=== PATIENT | female | born 1960 | race Caucasian/White ===

== ENCOUNTER 2019-07-10 21:22 | Emergency (ER) | payer MEDICARE ==
--- NOTE | 2019-07-10 22:15 | ERPHSYRPT ---
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 and saw her last week with same symptoms but son noted swelling /bulging there today ; no hernia on palpation but appears to be some degree of scoliosis contributing to the increased rib prominence on the left side ; no hx trauma , no hx infections or hx of spleenomegally; normal diet no N/V Timing/Duration: day(s), week(s) Activities at Onset: none Quality: sharpness, stabbing Abdominal Pain Onset Location: flank Pain Radiation: LUQ Severity of Pain-Max: moderate Severity of Pain-Current: moderate Modifying Factors: Improves With: movement, palpation Associated Symptoms: No nausea, No vomiting Previous symptoms: same symptoms as today, recently seen, recently treated Allergies/Adverse Reactions: erythromycin base Allergy (Verified 07/10/19 21:50) Rash Home Medications: Clopidogrel Bisulfate 75 mg [PLAVIX 75 MG Tablet] 75 mg PO DAILY 11/23/14 [History] Rosuvastatin Calcium [Crestor] 10 mg PO DAILY 11/23/14 [History] Hydrocodone/APAP 10/325 mg [[place] 10/325 MG Tablet] 1 tab PO TID 06/20/16 [History] Cyclobenzaprine HCl [Flexeril] 10 mg PO DAILY 07/10/19 [History] Evolocumab [Repatha Syringe] 1 tab PO DAILY 07/10/19 [History] Isosorbide Mononitrate 30 mg [Imdur 30 MG] 1 tab PO DAILY 07/10/19 [History ] Lisinopril 10 mg [Zestril 10 MG] 1 tab PO DAILY 07/10/19 [History] Propranolol HCl [Inderal LA] 1 tab PO DAILY 07/10/19 [History] - Review of Systems Constitutional: No Fever, No Chills Eyes: No Symptoms Ears, Nose, & Throat: No Symptoms Respiratory: No Cough, No Dyspnea Cardiac: No Chest Pain, No Edema, No Syncope Abdominal/Gastrointestinal: No Abdominal Pain, No Nausea, No Vomiting, No Diarrhea Genitourinary Symptoms: Flank Pain, No Dysuria Musculoskeletal: Back Pain, No Neck Pain Skin: No Rash Neurological: No Dizziness, No Focal Weakness, No Sensory Changes Psychological: No Symptoms Endocrine: No Symptoms Hematologic/Lymphatic: No Symptoms Immunological/Allergic: No Symptoms All Other Systems: Reviewed and Negative - Past Medical History Pertinent Past Medical History: Yes Neurological History: No Pertinent History ENT History: No Pertinent History Cardiac History: Angina, High Cholesterol, Hypertension Respiratory History: No Pertinent History Endocrine Medical History: No Pertinent History Musculoskeletal History: No Pertinent History GI Medical History: No Pertinent History Psycho-Social History: No Pertinent History Female Reproductive Disorders: No Pertinent History, Fibroids - Past Surgical History Past Surgical History: Yes Neuro Surgical History: No Pertinent History Cardiac: Cardiac Catheterization, Cardiac Stent Respiratory: No Pertinent History Gastrointestinal: No Pertinent History Genitourinary: No Pertinent History Musculoskeletal: Orthopedic Surgery Female Surgical History: Hysterectomy Other Surgical History: states "rods in back,and bilateral rotator cuff surgery " - Social History Smoking Status: Current every day smoker How long have you smoked: 20yrs Exposure to second hand smoke: Yes Drug Use: none Patient Lives Alone: No - Nursing Vital Signs Nursing Vital Signs: Initial Vital Signs Temperature 98.0 F 07/10/19 22:12 Pulse Rate 81 07/10/19 22:12 Respiratory Rate 18 07/10/19 22:12 Blood Pressure 137/104 07/10/19 22:12 O2 Sat by Pulse Oximetry 97 07/10/19 22:12 Pain Scale Pain Intensity 4 - Physical Exam General Appearance: no apparent distress, alert Eye Exam: PERRL/EOMI, eyes nml inspection Ears, Nose, Throat Exam: normal ENT inspection, pharynx normal, moist mucous membranes Neck Exam: normal inspection, non-tender, supple, full range of motion Respiratory Exam: normal breath sounds, lungs clear, No respiratory distress Cardiovascular Exam: regular rate/rhythm, normal heart sounds Gastrointestinal/Abdomen Exam: soft, tenderness (left ribs/flank), No mass, No guarding, No ecchymosis, No pulsatile mass, No rebound, No hernia, No organomegaly, No splenomegaly Pelvic Exam: deferred Rectal Exam: deferred Back Exam: normal inspection, normal range of motion, No CVA tenderness, No vertebral tenderness Extremity Exam: normal inspection, normal range of motion, pelvis stable Neurologic Exam: alert, oriented x 3, cooperative, normal mood/affect, nml cerebellar function, sensation nml, No motor deficits Skin Exam: normal color, warm, dry - Course Nursing assessment & vital signs reviewed: Yes EKG Interpreted by Me: Sinus Rhythm, Left [place] Deviation, Left Bundle Branch Block, Non-specific ST Changes - CT Exams Abdomen/Pelvis CT Interpretation: Tele-radiologist Report, No appendicitis, Other ( diverticulosis; ventral nonobs hernia , stable aneurysm) Ordered Tests: Active Orders 24 hr Category Date Time Status EKG-ER Only STAT Care 07/10/19 22:21 Active IV Insertion STAT Care 07/10/19 22:21 Active ABDOMEN AND PELVIS W CONTRAST [CT] Stat Exams 07/10/19 22:24 Taken CBC W DIFF Stat Lab 07/10/19 23:02 Completed CMP Stat Lab 07/10/19 23:02 Completed LIPASE Stat Lab 07/10/19 23:02 Completed Lactic Acid Stat Lab 07/10/19 22:55 Completed TROPONIN Q3H Lab 07/10/19 23:02 Completed TROPONIN Q3H Lab 07/11/19 01:30 Ordered TROPONIN Q3H Lab 07/11/19 04:30 Ordered TROPONIN Q3H Lab 07/11/19 07:30 Ordered TROPONIN Q3H Lab 07/11/19 10:30 Ordered UA W/RFX UR CULTURE Stat Lab 07/10/19 23:02 Completed Medication Summary Generic Name Dose Route Start Last Admin Trade Name Freq PRN Reason Stop Dose Admin Sodium Chloride 1,000 mls @ 100 mls/hr 07/10/19 22:30 07/10/19 22:59 Sodium Chloride 0.9% 1000 Ml IV 08/09/19 22:29 100 mls/hr .Q10H MYRNA Administration Discontinued Medications Generic Name Dose Route Start Last Admin Trade Name Freq PRN Reason Stop Dose Admin Lisinopril Confirm 07/10/19 22:46 Zestril 10 Mg Administered 07/10/19 22:47 Dose 10 mg .ROUTE .STK-MED ONE Lisinopril 10 mg 07/10/19 22:57 07/10/19 23:00 Zestril 10 Mg PO 07/10/19 22:58 10 mg STAT STA Administration Lab/Rad Data: Laboratory Result Diagrams 07/10/19 23:02 07/10/19 23:02 Laboratory Results 07/10/19 07/10/1920 Range/Units 23:02 23:02 23:02 WBC (4.0-10.5) K/mm3 RBC (4.1-5.4) M/mm3 Hgb (12.0-16.0) gm/dl Hct (35-47) % MCV (78-100) fl MCH (26-32) pg MCHC (32-36) g/dl RDW (11.5-14.0) % Plt Count (150-450) K/mm3 MPV (7.5-11.0) fl Gran % (36.0-66.0) % Eos # (Auto) (0-0.5) Absolute Lymphs (auto) (1.0-4.6) Absolute Monos (auto) (0.0-1.3) Lymphocytes % (24.0-44.0) % Monocytes % (0.0-12.0) % Eosinophils % (0.00-5.0) % Basophils % (0.0-0.4) % Absolute Granulocytes (1.4-6.9) Basophils # (0-0.4) Sodium 141 (137-145) mmol/L Potassium 3.7 (3.5-5.1) mmol/L Chloride 105 (98-107) mmol/L Carbon Dioxide 27 (22-30) mmol/L Anion Gap 12.5 (5-15) MEQ/L BUN 13 (7-17) mg/dL Creatinine 0.83 (0.52-1.04) mg/dL Estimated GFR > 60.0 ML/MIN Glucose 106 (74-106) mg/dL Lactic Acid (0.4-2.0) Calcium 9.8 (8.4-10.2) mg/dL Total Bilirubin 0.40 (0.2-1.3) mg/dL AST 34 (14-36) U/L ALT 24 (0-35) U/L Alkaline Phosphatase 61 (38-126) U/L Troponin I < 0.012 (0.000-0.034) ng/mL Serum Total Protein 7.7 (6.3-8.2) g/dL Albumin 4.4 (3.5-5.0) g/dL Lipase 61 (23-300) U/L Urine Color STRAW (YELLOW) Urine Appearance CLEAR (CLEAR) Urine pH 6.0 (5-6) Ur Specific [place] 1.002 (1.005-1.025) Urine Protein NEGATIVE (Negative) Urine Ketones NEGATIVE (NEGATIVE) Urine Blood SMALL (0-5) Nicko/ul Urine Nitrite NEGATIVE (NEGATIVE) Urine Bilirubin NEGATIVE (NEGATIVE) Urine Urobilinogen NEGATIVE (0-1) mg/dL Ur Leukocyte Esterase NEGATIVE (NEGATIVE) Urine WBC (Auto) NONE (0-5) /HPF Urine RBC (Auto) NONE (0-2) /HPF U Epithel Cells (Auto) NONE (FEW) /HPF Urine Bacteria (Auto) NONE (NEGATIVE) /HPF Urine Mucus (Auto) SLIGHT (NEGATIVE) /HPF Urine Culture Reflexed NO (NO) Urine Glucose NEGATIVE (NEGATIVE) mg/dL 07/10/19 07/10/19 Range/Units 23:02 22:55 WBC 7.2 (4.0-10.5) K/mm3 RBC 4.52 (4.1-5.4) M/mm3 Hgb 13.9 (12.0-16.0) gm/dl Hct 41.3 (35-47) % MCV 91.4 (78-100) fl MCH 30.8 (26-32) pg MCHC 33.7 (32-36) g/dl RDW 12.8 (11.5-14.0) % Plt Count 249 (150-450) K/mm3 MPV 9.2 (7.5-11.0) fl Gran % 59.1 (36.0-66.0) % Eos # (Auto) 0.16 (0-0.5) Absolute Lymphs (auto) 2.30 (1.0-4.6) Absolute Monos (auto) 0.47 (0.0-1.3) Lymphocytes % 31.8 (24.0-44.0) % Monocytes % 6.5 (0.0-12.0) % Eosinophils % 2.2 (0.00-5.0) % Basophils % 0.4 (0.0-0.4) % Absolute Granulocytes 4.28 (1.4-6.9) Basophils # 0.03 (0-0.4) Sodium (137-145) mmol/L Potassium (3.5-5.1) mmol/L Chloride (98-107) mmol/L Carbon Dioxide (22-30) mmol/L Anion Gap (5-15) MEQ/L BUN (7-17) mg/dL Creatinine (0.52-1.04) mg/dL Estimated GFR ML/MIN Glucose (74-106) mg/dL Lactic Acid 0.9 (0.4-2.0) Calcium (8.4-10.2) mg/dL Total Bilirubin (0.2-1.3) mg/dL AST (14-36) U/L ALT (0-35) U/L Alkaline Phosphatase (38-126) U/L Troponin I (0.000-0.034) ng/mL Serum Total Protein (6.3-8.2) g/dL Albumin (3.5-5.0) g/dL Lipase (23-300) U/L Urine Color (YELLOW) Urine Appearance (CLEAR) Urine pH (5-6) Ur Specific [place] (1.005-1.025) Urine Protein (Negative) Urine Ketones (NEGATIVE) Urine Blood (0-5) Nicko/ul Urine Nitrite (NEGATIVE) Urine Bilirubin (NEGATIVE) Urine Urobilinogen (0-1) mg/dL Ur Leukocyte Esterase (NEGATIVE) Urine WBC (Auto) (0-5) /HPF Urine RBC (Auto) (0-2) /HPF U Epithel Cells (Auto) (FEW) /HPF Urine Bacteria (Auto) (NEGATIVE) /HPF Urine Mucus (Auto) (NEGATIVE) /HPF Urine Culture Reflexed (NO) Urine Glucose (NEGATIVE) mg/dL - Progress Progress: improved, re-examined Progress Note: 07/10/19 22:17 [facility] and hx anuerysm and prior stents adn pt agress best to proceed with CT and ekg and labs 07/11/19 00:49 discussed results with pt and family and that undetected pathology including vascular/abd/cardiac could still be evolving and they prefer f/u PCP outpt as planned rather than further w/u/admission at this time and have the capacity to make this choice; Counseled pt/family regarding: lab results, diagnosis, need for follow-up, rad results - Departure Departure Disposition: Home Clinical Impression: abdominal flank pain unknown cause, Hematuria, Ventral hernia, stable aneursym AAA, Diverticulosis Condition: Good Critical Care Time: No Referrals: MIKI MITCHELL [Primary Care Provider] - Instructions: Blood in the Urine (Hematuria), Adult (DC), Diverticulosis (DC), Abdominal Hernia (DC), Abdominal Aortic Aneurysm Additional Instructions: followup with your doctors as planned- return meantime if any further concerns, you have a very mild aneurysm in the aorta which should be no immediate concern but is good to continue to observe with your vascular history; you have a ventral hernia which also is not causing immediate problems; followup the trace of blood in the urine with your
[2019-07-10] MEDS ORDERED: Sodium Chloride 0.9% 1000 ML 1,000 ML IV SCH (22:30)
[2019-07-10] MEDS ORDERED: Zestril 10 MG ONE (22:46)
[2019-07-10 22:53] VITALS: O2SAT 96
[2019-07-10] MEDS ORDERED: Zestril 10 MG PO STA (22:57)
[2019-07-10] MEDS ORDERED: Sodium Chloride 0.9% 1000 ML 1,000 ML ONE (22:58)
[2019-07-10 23:04] LABS: Absolute Neutrophil Ct (ANC) 4.28 (1.4-6.9); BASOPHIL % 0.4 % (0.0-0.4); Basophil (Absolute #) 0.03 (0-0.4); Eosinophil % 2.2 % (0.00-5.0); Eosinophil (Absolute #) 0.16 (0-0.5); Hematocrit 41.3 % (35-47); Hemoglobin 13.9 gm/dl (12.0-16.0); Lymphocytes % 31.8 % (24.0-44.0); Mean Cell Volume 91.4 fl (78-100); Mean Corpuscular Hemoglobin 30.8 pg (26-32); Mean Corpuscular Hgb Concent. 33.7 g/dl (32-36); Mean Platelet Volume 9.2 fl (7.5-11.0); Monocyte (Absolute #) 0.47 (0.0-1.3); Monocytes % 6.5 % (0.0-12.0); Neutrophil % 59.1 % (36.0-66.0); Platelet Count 249 K/mm3 (150-450); Red Blood Count 4.52 M/mm3 (4.1-5.4); Red Cell Distribution Width 12.8 % (11.5-14.0); White Blood Count 7.2 K/mm3 (4.0-10.5)
[2019-07-10 23:17] LABS: ALBUMIN 4.4 g/dL (3.5-5.0); ALKALINE PHOSPHATASE 61 U/L (38-126); ANION GAP 12.5 MEQ/L (5-15); BLOOD UREA NITROGEN 13 mg/dL (7-17); CHLORIDE 105 mmol/L (98-107); Calcium 9.8 mg/dL (8.4-10.2); Carbon Dioxide 27 mmol/L (22-30); Creatinine 1 0.83 mg/dL (0.52-1.04); Glucose 106 mg/dL (74-106); LIPASE 61 U/L (23-300); Potassium 3.7 mmol/L (3.5-5.1); SGOT/AST 34 U/L (14-36); SGPT/ALT 24 U/L (0-35); SODIUM 141 mmol/L (137-145); Total Protein 7.7 g/dL (6.3-8.2)
[2019-07-10 23:30] LABS: Appearance CLEAR (CLEAR); Bilirubin NEGATIVE (NEGATIVE); Blood SMALL Ery/ul (0-5); Glucose NEGATIVE (NEGATIVE); Ketones NEGATIVE (NEGATIVE); Leukocyte Esterase NEGATIVE (NEGATIVE); Mucus SLIGHT /HPF (NEGATIVE); Nitrite NEGATIVE (NEGATIVE); Protein,Urine Dip NEGATIVE (Negative); Specific Gravity 1.002 (1.005-1.025); Urobilinogen NEGATIVE mg/dL (0-1)
[2019-07-11 01:07] VITALS: BP 187/94; PULSE 73
--- NOTE | 2019-07-11 08:49 | XRAY ---
Indication: Left flank pain. Multiple contiguous axial images obtained through the abdomen and pelvis using 80 cc Isovue 370 contrast only. Comparison: CT pelvis December 20, 2010. Lung bases demonstrates minimal bilateral dependent atelectasis and tiny lingula calcified granuloma. No infiltrate or effusion. Heart is enlarged. Small hiatal hernia. Noncontrasted stomach and bowel loops appear nonobstructed. Mild diffuse scattered colonic fecal debris throughout. Stable scattered sigmoid diverticulosis without diverticulitis. Appendectomy and cholecystectomy reported. No free fluid/air. Both kidneys enhance and excrete with minimal bilateral cortical thinning/scarring. 1 cm right upper pole cortical cyst. Remaining liver, pancreas, spleen, adrenal glands, kidneys, ureters, and bladder appear unremarkable. Aorta demonstrates mild scattered calcifications with mild 2.5 cm distal AAA. Stable bilateral iliac stent grafts. No pathologic retroperitoneal lymphadenopathy. Osseous structures intact again with L2-L5 fusion with intact posterior spinal hardware. New minimal umbilicus ventral hernia without complications. Impression: 1. Mild fecal stasis without obstruction. Stable sigmoid diverticulosis without diverticulitis. 2. 2.5 cm distal AAA with stable bilateral iliac stent grafts. 3. Minimal bilateral renal cortical thinning/scarring, right renal cyst, small hiatal hernia, and L2-L5 posterior fusion. 4. Remaining CT abdomen/pelvis with contrast exam is negative. Comment: Preliminary interpretation was made by [facility]. No critical discrepancy.
== END 2019-07-11 01:14 | disposition home or self-care (01) ==
LOC: ED 21:22
DX: R10.12 Left upper quadrant pain (principal); R10.9 Unspecified abdominal pain; R31.9 Hematuria, unspecified; K43.9 Ventral hernia without obstruction or gangrene; I71.4 Abdominal aortic aneurysm, without rupture; K57.90 Diverticulosis of intestine, part unspecified, without perforation or abscess without bleeding; I10 Essential (primary) hypertension; E78.00 Pure hypercholesterolemia, unspecified; Z79.899 Other long term (current) drug therapy; Z79.891 Long term (current) use of opiate analgesic; M54.9 Dorsalgia, unspecified
CPT/HCPCS: 36000; 36415; 74177; 80053; 81001; 83605; 83690; 84484; 85025; 93005; 99284; A9270-GY

== ENCOUNTER 2021-03-18 16:47 | Emergency (ER) | payer MEDICARE ==
[2021-03-18 17:13] VITALS: O2SAT 99
[2021-03-18] MEDS ORDERED: Sodium Chloride 0.9% 1000 ML 1,000 ML IV STA (17:34)
[2021-03-18] MEDS ORDERED: Sodium Chloride 0.9% 1000 ML 1,000 ML ONE (17:42)
[2021-03-18 17:51] LABS: ALBUMIN 4.6 g/dL (3.5-5.0); ANION GAP 14.7 MEQ/L (5-15); BASOPHIL % 0.2 % (0.0-0.4); BILIRUBIN,TOTAL 0.7 mg/dL (0.2-1.3); Basophil (Absolute #) 0.02 (0-0.4); Calcium 9.6 mg/dL (8.4-10.2); Creatinine 1 1.44 mg/dL (0.52-1.04); EST GLOMERULAR FILTRATION RATE 39.7 ML/MIN; Eosinophil % 2.5 % (0.00-5.0); Eosinophil (Absolute #) 0.21 (0-0.5); Hemoglobin 13.5 gm/dl (12.0-16.0); Lymphocyte (Absolute #) 1.59 (1.0-4.6); Lymphocytes % 18.9 % (24.0-44.0); Mean Cell Volume 92.5 fl (78-100); Mean Corpuscular Hemoglobin 29.7 pg (26-32); Mean Corpuscular Hgb Concent. 32.1 g/dl (32-36); Mean Platelet Volume 9.3 fl (7.5-11.0); Monocyte (Absolute #) 0.61 (0.0-1.3); Monocytes % 7.2 % (0.0-12.0); Neutrophil % 71.2 % (36.0-66.0); Platelet Count 314 K/mm3 (150-450); Potassium 4.7 mmol/L (3.5-5.1); Red Blood Count 4.54 M/mm3 (4.1-5.4); Red Cell Distribution Width 13.3 % (11.5-14.0); Total Protein 7.3 g/dL (6.3-8.2); White Blood Count 8.4 K/mm3 (4.0-10.5)
[2021-03-18 17:53] LABS: Appearance CLEAR (CLEAR); Bilirubin NEGATIVE (NEGATIVE); Blood SMALL Ery/ul (0-5); Glucose NEGATIVE (NEGATIVE); Ketones NEGATIVE (NEGATIVE); Leukocyte Esterase NEGATIVE (NEGATIVE); Nitrite NEGATIVE (NEGATIVE); Protein,Urine Dip NEGATIVE (Negative); Specific Gravity 1.003 (1.005-1.025); Urobilinogen NEGATIVE mg/dL (0-1)
--- NOTE | 2021-03-18 18:52 | ERPHSYRPT ---
- History of Present Illness Time Seen by Provider: 03/18/21 17:10 Historian: patient Exam Limitations: no limitations Patient Subjective Stated Complaint: Abdominal pain Triage Nursing Assessment: Patient ambulated back to ED and transferred self to bed. Patient A+O X 3. Patient's skin pink, warm and dry. Patient complains of abdominal pain around umbilicus that started on Thursday. Patient complains of diarrhea and after eating going straight to restroom and having diarrrhea. Abdomen soft and round with BS X 4. Patient denies N/V. Physician History: Patient is a 60-year-old female presents to our ED with complaint supraumbilical pain. Pain started after starting Bactrim antibiotic for urinary tract infection. Patient started her Bactrim last week Thursday. Patient states her symptoms started Thursday. Patient states that she would eat and then experience periumbilical pain and pressure. Patient has since stopped her Bactrim. No radiation no fever. Patient voiced no other complaints concerns this time. Timing/Duration: week(s) Activities at Onset: none Quality: aching Abdominal Pain Onset Location: periumbilical Pain Radiation: no radiation Severity of Pain-Max: moderate Severity of Pain-Current: mild Modifying Factors: Improves With: other (Eating) Associated Symptoms: denies symptoms, back Allergies/Adverse Reactions: erythromycin base Allergy (Verified 03/18/21 17:05) Rash Home Medications: Clopidogrel Bisulfate 75 mg [PLAVIX 75 MG Tablet] 75 mg PO DAILY 11/23/14 [History] Rosuvastatin Calcium [Crestor] 10 mg PO DAILY 11/23/14 [History] Hydrocodone/APAP 10/325 mg [[place] 10/325 MG Tablet] 1 tab PO TID 06/20/16 [History] Cyclobenzaprine HCl [Flexeril] 10 mg PO DAILY 07/10/19 [History] Evolocumab [Repatha Syringe] 1 tab PO DAILY 07/10/19 [History] Isosorbide Mononitrate 30 mg [Imdur 30 MG] 1 tab PO DAILY 07/10/19 [History] Lisinopril 10 mg [Zestril 10 MG] 1 tab PO DAILY 07/10/19 [History] Propranolol HCl [Inderal LA] 1 tab PO DAILY 07/10/19 [History] Hx Influenza Vaccination/Date Given: No Hx Pneumococcal Vaccination/Date Given: No Immunizations Up to Date: Yes Travel Risk - International Travel Have you traveled outside of the country in past 3 weeks: No - Coronavirus Screening Are you exhibiting any of the following symptoms?: No Close contact with a COVID-19 positive Pt in past 14-21 Days: No - Vaccine Status Have you recieved a Covid-19 vaccination: Yes [employer]: [employer] - Vaccination Dates Date of 2cond Vaccination (if applicable): November 2020 - Past Medical History Pertinent Past Medical History: Yes Neurological History: No Pertinent History ENT History: No Pertinent History Cardiac History: Angina, High Cholesterol, Hypertension Respiratory History: No Pertinent History Endocrine Medical History: No Pertinent History Musculoskeletal History: No Pertinent History GI Medical History: No Pertinent History Psycho-Social History: No Pertinent History Female Reproductive Disorders: No Pertinent History, Fibroids - Past Surgical History Past Surgical History: Yes Neuro Surgical History: No Pertinent History Cardiac: Cardiac Catheterization, Cardiac Stent Respiratory: No Pertinent History Gastrointestinal: No Pertinent History Genitourinary: No Pertinent History Musculoskeletal: Orthopedic Surgery Female Surgical History: Hysterectomy Other Surgical History: states "rods in back,and bilateral rotator cuff surgery" - Social History Smoking Status: Current every day smoker How long have you smoked: 20yrs Exposure to second hand smoke: Yes Drug Use: none Patient Lives Alone: Yes - Female History Hx Now: No - Nursing Vital Signs Nursing Vital Signs: Initial Vital Signs Temperature 97.7 F 03/18/21 17:05 Pulse Rate 73 03/18/21 17:05 Respiratory Rate 18 03/18/21 17:05 Blood Pressure 159/90 03/18/21 17:05 O2 Sat by Pulse Oximetry 99 03/18/21 17:05 Pain Scale Pain Intensity 4 - Physical Exam SpO2: 99 - Course Nursing assessment & vital signs reviewed: Yes - CT Exams Abdomen/Pelvis CT Interpretation: Tele-radiologist Report (Compared to 07/11/2019 stable small hiatal hernia. Demeanor AAA with iliac stents, sigmoid diverticulosis, small umbilical ventral hernia, L2-L5 fusion hardware beam artifact. No new acute findings) Ordered Tests: Active Orders 24 hr Category Date Time Status IV Insertion STAT Care 03/18/21 17:34 Active ABDOMEN AND PELVIS W/0 CONTRAS [CT] Stat Exams 03/18/21 17:34 Taken CBC W DIFF Stat Lab 03/18/21 17:28 Completed CMP Stat Lab 03/18/21 17:28 Completed HCG,QUALITATIVE URINE Stat Lab 03/18/21 18:49 Completed LIPASE Stat Lab 03/18/21 17:28 Completed TROPONIN Q3H Lab 03/18/21 17:28 Completed TROPONIN Q3H Lab 03/18/21 20:45 Ordered TROPONIN Q3H Lab 03/18/21 23:45 Ordered TROPONIN Q3H Lab 03/19/21 02:45 Ordered TROPONIN Q3H Lab 03/19/21 05:45 Ordered UA W/RFX UR CULTURE Stat Lab 03/18/21 17:39 Completed Medication Summary Discontinued Medications Generic Name Dose Route Start Last Admin Trade Name Freq PRN Reason Stop Dose Admin Sodium Chloride 1,000 mls @ 999 mls/hr 03/18/21 17:34 03/18/21 18:53 Sodium Chloride 0.9% 1000 Ml IV 03/18/21 18:34 Infused .Q1H1M STA Infusion Sodium Chloride Confirm 03/18/21 17:42 Sodium Chloride 0.9% 1000 Ml Administered 03/18/21 17:43 Dose 1,000 mls @ ud .ROUTE .STK-MED ONE Lab/Rad Data: Laboratory Result Diagrams 03/18/21 17:28 03/18/21 17:28 Laboratory Results 03/18/21 03/18/21 03/18/21 Range/Units 18:49 17:39 17:28 WBC (4.0-10.5) K/mm3 RBC (4.1-5.4) M/mm3 Hgb (12.0-16.0) gm/dl Hct (35-47) % MCV (78-100) fl MCH (26-32) pg MCHC (32-36) g/dl RDW (11.5-14.0) % Plt Count (150-450) K/mm3 MPV (7.5-11.0) fl Gran % (36.0-66.0) % Eos # (Auto) (0-0.5) Absolute Lymphs (auto) (1.0-4.6) Absolute Monos (auto) (0.0-1.3) Lymphocytes % (24.0-44.0) % Monocytes % (0.0-12.0) % Eosinophils % (0.00-5.0) % Basophils % (0.0-0.4) % Absolute Granulocytes (1.4-6.9) Basophils # (0-0.4) Sodium (137-145) mmol/L Potassium (3.5-5.1) mmol/L Chloride (98-107) mmol/L Carbon Dioxide (22-30) mmol/L Anion Gap (5-15) MEQ/L BUN (7-17) mg/dL Creatinine (0.52-1.04) mg/dL Estimated GFR ML/MIN Glucose (74-106) mg/dL Calcium (8.4-10.2) mg/dL Total Bilirubin (0.2-1.3) mg/dL AST (14-36) U/L ALT (0-35) U/L Alkaline Phosphatase (38-126) U/L Troponin I < 0.012 (0.000-0.034) ng/mL Serum Total Protein (6.3-8.2) g/dL Albumin (3.5-5.0) g/dL Lipase (23-300) U/L Urine Color STRAW (YELLOW) Urine Appearance CLEAR (CLEAR) Urine pH 5.0 (5-6) Ur Specific [place] 1.003 (1.005-1.025) Urine Protein NEGATIVE (Negative) Urine Ketones NEGATIVE (NEGATIVE) Urine Blood SMALL (0-5) Nicko/ul Urine Nitrite NEGATIVE (NEGATIVE) Urine Bilirubin NEGATIVE (NEGATIVE) Urine Urobilinogen NEGATIVE (0-1) mg/dL Ur Leukocyte Esterase NEGATIVE (NEGATIVE) Urine WBC (Auto) NONE (0-5) /HPF Urine RBC (Auto) NONE (0-2) /HPF U Epithel Cells (Auto) NONE (FEW) /HPF Urine Bacteria (Auto) NONE (NEGATIVE) /HPF Urine Culture Reflexed NO (NO) Urine Glucose NEGATIVE (NEGATIVE) mg/dL Urine HCG, Qual NEGATIVE (Negative) 03/18/21 03/18/21 Range/Units 17:28 17:28 WBC 8.4 (4.0-10.5) K/mm3 RBC 4.54 (4.1-5.4) M/mm3 Hgb 13.5 (12.0-16.0) gm/dl Hct 42.0 (35-47) % MCV 92.5 (78-100) fl MCH 29.7 (26-32) pg MCHC 32.1 (32-36) g/dl RDW 13.3 (11.5-14.0) % Plt Count 314 (150-450) K/mm3 MPV 9.3 (7.5-11.0) fl Gran % 71.2 H (36.0-66.0) % Eos # (Auto) 0.21 (0-0.5) Absolute Lymphs (auto) 1.59 (1.0-4.6) Absolute Monos (auto) 0.61 (0.0-1.3) Lymphocytes % 18.9 L (24.0-44.0) % Monocytes % 7.2 (0.0-12.0) % Eosinophils % 2.5 (0.00-5.0) % Basophils % 0.2 (0.0-0.4) % Absolute Granulocytes 6.00 (1.4-6.9) Basophils # 0.02 (0-0.4) Sodium 136 L (137-145) mmol/L Potassium 4.7 (3.5-5.1) mmol/L Chloride 104 (98-107) mmol/L Carbon Dioxide 22 (22-30) mmol/L Anion Gap 14.7 (5-15) MEQ/L BUN 16 (7-17) mg/dL Creatinine 1.44 H (0.52-1.04) mg/dL Estimated GFR 39.7 ML/MIN Glucose 96 (74-106) mg/dL Calcium 9.6 (8.4-10.2) mg/dL Total Bilirubin 0.70 (0.2-1.3) mg/dL AST 30 (14-36) U/L ALT 17 (0-35) U/L Alkaline Phosphatase 52 (38-126) U/L Troponin I (0.000-0.034) ng/mL Serum Total Protein 7.3 (6.3-8.2) g/dL Albumin 4.6 (3.5-5.0) g/dL Lipase 68 (23-300) U/L Urine Color (YELLOW) Urine Appearance (CLEAR) Urine pH (5-6) Ur Specific [place] (1.005-1.025) Urine Protein (Negative) Urine Ketones (NEGATIVE) Urine Blood (0-5) Nicko/ul Urine Nitrite (NEGATIVE) Urine Bilirubin (NEGATIVE) Urine Urobilinogen (0-1) mg/dL Ur Leukocyte Esterase (NEGATIVE) Urine WBC (Auto) (0-5) /HPF Urine RBC (Auto) (0-2) /HPF U Epithel Cells (Auto) (FEW) /HPF Urine Bacteria (Auto) (NEGATIVE) /HPF Urine Culture Reflexed (NO) Urine Glucose (NEGATIVE) mg/dL Urine HCG, Qual (Negative) - Progress Progress: improved Progress Note: Patient reassessed. She is pain-free at this time. We cannot do a contrast study due to kidney function. Kidney function may be compromised possibly due to the use of Bactrim. Patient is aware of her AAA. Patient states he is ready for discharge. Patient also voiced that she does not experience any pain when she drinks clear liquids or cereal. Patient advised to maintain a clear liquid diet until following up with her primary care doctor. Postprandial pain may be mesenteric ischemia. However this will require further study. There is no acute mesenteric ischemia at this time as patient is pain-free. Patient cannot have IV contrast due to kidney function. Patient will follow up with Dr. Wright tomorrow. Portions of this note were created with voice recognition technology. There may be grammatical, spelling, punctuation or sound alike errors 03/18/21 21:21 Patient will completely stop the Bactrim. Urinalysis is negative no UTI observed. 03/18/21 21:23 Counseled pt/family regarding: lab results, diagnosis, need for follow-up, rad results - Departure Departure Disposition: Home Clinical Impression: Generalized postprandial abdominal pain, Hiatal hernia, AAA (abdominal aortic aneurysm), Sigmoid diverticulosis, Elevated serum creatinine, Acute renal injury Condition: Stable Critical Care Time: No Referrals: MIKI WRIGHT [Primary Care Provider] - Follow up/PCP as directed Additional Instructions: Follow-up with Dr. Burr tomorrow for reevaluation. You may require a specialized CAT scan to assess the vasculature of your intestines to assure that the blood flow within normal limits particularly after eating. They will also need to further evaluate your worsening kidney function. Since clear liquids and light foods do not cause pain please stay away from all foods particularly fatty foods greasy foods or any food that reproduces your symptoms/pain. If you develop worsening pain return to the emergency department immediately Discharge/Care Plan JAMIE HOWELL was seen on 03/18/21 in the Emergency Room. The patient was counseled regarding Diagnosis,Lab results, Imaging studies, need for follow up and when to return to the Emergency Room. Prescriptions given: Discharge Note I have spoken with the patient and/or caregivers. I have explained the patient's condition, diagnosis and treatment plan based on the information available to me at this time. I have answered the patient's and/or caregiver's questions and addressed any concerns. The patient and/or caregivers have as good understanding of the patient's diagnosis, condition and treatment plan as can be expected at this point. The vital signs have been stable. The patient's condition is stable and appropriate for discharge from the emergency department. The patient will pursue further outpatient evaluation with the primary care physician or other designated or consulting physician as outlined in the discharge instructions. The patient and/or caregivers are agreeable to this plan of care and follow-up instructions have been explained in detail. The patient and/or caregivers have received these instruction. The patient/and or caregivers are aware that any significant change in condition or worsening of symptoms should prompt an immediate return to this or the closest emergency department or call 911.
[2021-03-18 19:17] VITALS: BP 141/58; PULSE 64
--- NOTE | 2021-03-19 08:41 | XRAY ---
Indication: Abdomen pain, bloating, and belching. Multiple contiguous axial images obtained through the abdomen and pelvis without contrast. Comparison: July 10, 2019. Lung bases again demonstrate minimal bibasilar subsegmental atelectasis/scarring and tiny left base calcified granuloma. No infiltrate or effusion. Heart is not enlarged. Stable small hiatal hernia. Again L2-L5 posterior spinal fusion hardware produces beam artifact. Noncontrasted stomach and bowel loops appear nonobstructed again with scattered sigmoid diverticulosis. Appendectomy and cholecystectomy reported. No free fluid/air. Remaining liver, pancreas, spleen, adrenal glands, kidneys, ureters, and bladder appear unremarkable for noncontrast exam. There remains mild scattered aortoiliac calcifications with stable 2.5 cm distal AAA and bilateral iliac stent grafts. Lack of IV contrast precludes further characterization. Osseous structures intact again with mild degenerative changes throughout the spine. Stable small umbilical ventral hernia with slight protruding small bowel loop without complications. Impression: 1. Stable L2-L5 spinal fusion hardware beam artifact, small hiatal hernia, distal AAA with bilateral iliac stent grafts, sigmoid diverticulosis, and small ventral hernia. 2. Remaining CT abdomen/pelvis without contrast exam is negative.
== END 2021-03-18 21:44 | disposition home or self-care (01) ==
LOC: ED 16:47
DX: K44.9 Diaphragmatic hernia without obstruction or gangrene (principal); I71.4 Abdominal aortic aneurysm, without rupture; K57.30 Diverticulosis of large intestine without perforation or abscess without bleeding; R94.4 Abnormal results of kidney function studies; R10.84 Generalized abdominal pain; I10 Essential (primary) hypertension; E78.5 Hyperlipidemia, unspecified; Z79.01 Long term (current) use of anticoagulants; Z79.891 Long term (current) use of opiate analgesic; Z72.0 Tobacco use
CPT/HCPCS: 36000; 36415; 74176; 80053; 81001; 83690; 84484; 84703; 85025; 96360; 99284

== ENCOUNTER 2022-09-01 20:55 | Emergency (ER) | payer MEDICARE, OTHER ==
[2022-09-01] MEDS ORDERED: MORPHINE SULFATE 4 MG INJ IM ONE (22:30)
[2022-09-01] MEDS ORDERED: MORPHINE SULFATE 4 MG INJ ONE (22:34)
--- NOTE | 2022-09-01 23:39 | XRAY ---
CLINICAL HISTORY:pain COMPARISON:X-ray dated 06/27/2020; TECHNIQUES:CT scan of the right hip joint and right proximal femur was performed without IV contrast. Coronal and sagittal reconstructive images were obtained. DLP: 246.96 mGy*cm. CTDI: 10.71 mGy; FINDINGS: Soft tissue swelling is noted along the lateral aspect of right hip joint with fat stranding and homogeneous hyperdensity in the subcutaneous plane measuring 5 x 3 cm, likely suggestive of a hematoma. Degenerative changes are noted with linear lucency at greater trochanter more evident on coronal view, likely suggestive of a prior bony insult/fracture. Right hip joint is normal. The hip joint reveals normal rounded contour. No evidence of articular collapse. The joint spaces is normal. No loose bodies. Right sacroiliac joint appears normal. A bulky osteophyte is noted along the right iliac blade. Osteophytes are also seen at right ischial tuberosity. No lytic or sclerotic bone lesions. A couple of injection granulomas are noted in right gluteal region. IMPRESSION: 1. Soft tissue swelling along the lateral aspect of the right hip joint with fat stranding and homogeneous hyperdensity in the subcutaneous plane, likely suggestive of a hematoma. 2. Linear lucency at the right greater trochanter, likely suggestive of prior bony insult. Clinical correlation is suggested. Electronically Signed by: lAfred Camacho MD. 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
--- NOTE | 2022-09-01 23:46 | ERPHSYRPT ---
- History of Present Illness Time Seen by Provider: 09/01/22 21:45 Source: patient Exam Limitations: no limitations Patient Subjective Stated Complaint: pt states she fell on her rt hip tonight at work and has swelling and pain. Triage Nursing Assessment: pt alert and oriented, answers questions approp. pt back per wheelchair and transfers to stretcher per self with limping gait noted. respirations nonlabored . skin warm and dry. swelling noted to rt hip, no bruising at this time. no shortening or rotation noted to rt lower ext. pedal pulse and cap refill wnl. Physician History: Patient is a 62-year-old female presents to our ED for evaluation of pain and swelling to her right hip. Patient was at work when she tripped on a cord and fell onto her right hip. Patient later went home and observed the area to be [facility]. Patient's son advised her to come to our ED to get "checked out". No other injuries reported. No BHT or LOC. No neck pain. Cervical spine cleared clinically. Patient has a superficial abrasion to the right elbow. Upper extremity neurovascular intact distally. Right lower extremity neurovascular tact distally. Patient took a [place] 01/27/2025 at 1830. Patient takes [place] regularly for chronic pain control. Patient has a pain doctor that manages her chronic pain. Patient advised that she normally takes Plavix. However patient is 1 day off of her Plavix due to a pending dental procedure. Occurred: just prior to arrival Reason for Fall: tripped (Patient tripped over a cord at work.) Injuries/Pain Location: lower extremity Loss of Consciousness: no loss of consciousness, other Severity of Pain-Max: moderate Severity of Pain-Current: mild Modifying Factors: Improves With: nothing Associated Symptoms (Fall): denies symptoms Allergies/Adverse Reactions: erythromycin base Allergy (Verified 03/18/21 17:05) Rash Home Medications: Clopidogrel Bisulfate [PLAVIX 75 MG Tablet] 75 mg PO DAILY 11/23/14 [History] Rosuvastatin Calcium [Crestor] 10 mg PO DAILY 11/23/14 [History] Hydrocodone/APAP 10/325 mg [[place] 10/325 MG Tablet] 1 tab PO Q4-6HPRN PRN 06/20/16 [History] Cyclobenzaprine HCl [Flexeril] 10 mg PO BID 07/10/19 [History] Evolocumab [Repatha Syringe] 1 tab PO UD 07/10/19 [History] Isosorbide Mononitrate 30 mg [Imdur 30 MG] 1 tab PO DAILY 07/10/19 [History] Lisinopril 10 mg [Zestril 10 MG] 1 tab PO BID 07/10/19 [History] Propranolol HCl [Inderal LA] 1 tab PO DAILY 07/10/19 [History] Amlodipine Besylate [Norvasc] 10 mg PO BID 09/01/22 [History] Famotidine [Pepcid] 40 mg PO BID 09/01/22 [History] Hx Tetanus, Diphtheria Vaccination/Date Given: No Hx Influenza Vaccination/Date Given: No Hx Pneumococcal Vaccination/Date Given: No Immunizations Up to Date: No Travel Risk - International Travel Have you traveled outside of the country in past 3 weeks: No - Coronavirus Screening Are you exhibiting any of the following symptoms?: No Close contact with a COVID-19 positive Pt in past 14-21 Days: No - Vaccine Status Have you recieved a Covid-19 vaccination: Yes 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[employer] - Vaccination Dates Date of 2cond Vaccination (if applicable): November 2020 - Review of Systems Constitutional: No Symptoms, No Fever, No Chills Eyes: No Symptoms Ears, Nose, & Throat: No Symptoms Respiratory: No Symptoms, No Cough, No Dyspnea Cardiac: No Symptoms, No Chest Pain, No Edema, No Syncope Abdominal/Gastrointestinal: No Symptoms, No Abdominal Pain, No Nausea, No Vomiting, No Diarrhea Genitourinary Symptoms: No Symptoms, No Dysuria Musculoskeletal: No Symptoms, No Back Pain, No Neck Pain Skin: No Symptoms, No Rash Neurological: No Symptoms, No Dizziness, No Focal Weakness, No Sensory Changes Psychological: No Symptoms Endocrine: No Symptoms Hematologic/Lymphatic: No Symptoms Immunological/Allergic: No Symptoms All Other Systems: Reviewed and Negative - Past Medical History Pertinent Past Medical History: Yes Neurological History: No Pertinent History ENT History: No Pertinent History Cardiac History: Angina, Coronary Artery Disease, High Cholesterol, Hypertension Respiratory History: No Pertinent History Endocrine Medical History: No Pertinent History Musculoskeletal History: No Pertinent History GI Medical History: No Pertinent History Psycho-Social History: No Pertinent History Female Reproductive Disorders: No Pertinent History, Fibroids - Past Surgical History Past Surgical History: Yes Neuro Surgical History: No Pertinent History Cardiac: Cardiac Catheterization, Cardiac Stent Respiratory: No Pertinent History Gastrointestinal: No Pertinent History Genitourinary: No Pertinent History Musculoskeletal: Orthopedic Surgery Female Surgical History: Hysterectomy Other Surgical History: states "rods in back,and bilateral rotator cuff surgery" - Social History Smoking Status: Current every day smoker How long have you smoked: 20yrs Exposure to second hand smoke: Yes Drug Use: none Patient Lives Alone: No - Nursing Vital Signs Nursing Vital Signs: Initial Vital Signs Temperature 98.0 F 09/01/22 21:14 Pulse Rate 100 H 09/01/22 21:14 Respiratory Rate 18 09/01/22 21:14 O2 Sat by Pulse Oximetry 95 09/01/22 21:14 Pain Scale Pain Intensity 7 - Eleanor Coma Score Best Eye Response (Eleanor): (4) open spontaneously Best Verbal Response ([place]): (5) oriented Best Motor Response (Eleanor): (6) obeys commands [place] Total: 15 - Physical Exam General Appearance: no apparent distress, alert Head Injury: no evidence of injury Eye Exam: PERRL/EOMI ENT Exam: airway nml Neck Exam: supple, full range of motion, normal alignment, normal inspection, No tenderness Respiratory/Chest Exam: normal breath sounds, No chest tenderness, No respiratory distress Cardiovascular Exam: normal heart sounds, regular rate/rhythm Gastrointestinal Exam: soft, No tenderness, No distention, No guarding, No ecchymosis Back Exam: normal inspection, No vertebral tenderness Extremity Exam: normal inspection, normal range of motion, pelvis stable, No deformities Neurologic Exam: alert, oriented x 3, cooperative, sensation nml, No motor deficits Skin Exam: normal color, warm, dry SpO2 Interpretation: normal SpO2: 92 O2 Delivery: Room Air - Course Nursing assessment & vital signs reviewed: Yes - CT Exams Lower Extremity CT Interpretation: Tele-radiologist Report (CT scan reveals a right hip hematoma. There appears to be evidence of a prior hip injury possible fracture. ) Ordered Tests: Active Orders 24 hr Category Date Time Status LOWER EXTREMITY WO CONTRAST [CT] Stat Exams 09/01/22 22:29 Completed Medication Summary Discontinued Medications Generic Name Dose Route Start Last Admin Trade Name Freq PRN Reason Stop Dose Admin Morphine Sulfate 4 mg 09/01/22 22:30 09/01/22 22:34 Morphine Sulfate 4 Mg/Ml Injection IM 09/01/22 22:31 4 mg STAT ONE Administration Morphine Sulfate Confirm 09/01/22 22:34 Morphine Sulfate 4 Mg/Ml Injection Administered 09/01/22 22:35 Dose 4 mg .ROUTE .STAviate-MED ONE - Progress Progress: improved Progress Note: Patient is a 62-year-old female presents to our ED for evaluation of right hip pain status post fall. Physical exam reveals a hematoma at the right lower extremity. The right lower extremity is neurovascular intact distally. Patient also has an abrasion to her right elbow. CT scan confirms hematoma formation. There is also evidence of a previous hip injury possible fracture. Patient is ambulatory at this time. No antalgic gait pattern. Existing fracture unlikely. We will discharge home. Patient received a dose of morphine in our ED for pain control. Patient appears comfortable. Vital stable. Complexity of problem addressed is low acute uncomplicated. No critical care time Complexity of data reviewed and analyzed is low. Test ordered test report reviewed. Risk of complication and or risk morbidity/mortality patient management is high. Patient received IM morphine for pain control. We will discharge home. Patient agrees to follow-up with primary care doctor within 48 hours for evaluation. Patient received an orthopedic referral as well. No social determinants of health present to impede follow-up. Plan of care established via shared decision making. Patient voices no other complaints or concerns at this time. Portions of this note were created with voice recognition technology. There may be grammatical, spelling, punctuation or sound alike errors 09/01/22 23:52 Counseled pt/family regarding: diagnosis, need for follow-up, rad results - Departure Departure Disposition: Home Clinical Impression: Fall, Hip hematoma, right, Elbow abrasion Condition: Stable Critical Care Time: No Referrals: MIKI MITCHELL [Primary Care Provider] - Follow up/PCP as directed Additional Instructions: Discharge/Care Plan JAMIE HOWELL was seen on 09/01/22 in the Emergency Room. The patient was counseled regarding Diagnosis,Lab results, Imaging studies, need for follow up and when to return to the Emergency Room. Prescriptions given: Discharge Note I have spoken with the patient and/or caregivers. I have explained the patient's condition, diagnosis and treatment plan based on the information available to me at this time. I have answered the patient's and/or caregiver's questions and addressed any concerns. The patient and/or caregivers have as good understanding of the patient's diagnosis, condition and treatment plan as can be expected at this point. The vital signs have been stable. The patient's condition is stable and appropriate for discharge from the emergency department. The patient will pursue further outpatient evaluation with the primary care physician or other designated or consulting physician as outlined in the discharge instructions. The patient and/or caregivers are agreeable to this plan of care and follow-up instructions have been explained in detail. The patient and/or caregivers have received these instruction. The patient/and or caregivers are aware that any significant change in condition or worsening of symptoms should prompt an immediate return to this or the closest emergency department or call 911. Outpatient Orders: Ortho Referral Time Frame: 1 Day, Facility: [facility]osp, Location: [facility]
[2022-09-02] MEDS ORDERED: Adacel Vial IM ONE ×2 (00:49→00:52)
[2022-09-02 01:22] VITALS: BP 159/90; PULSE 72; O2SAT 94
== END 2022-09-02 01:15 | disposition home or self-care (01) ==
LOC: ED 20:55
DX: S70.01XA Contusion of right hip, initial encounter (principal); S50.311A Abrasion of right elbow, initial encounter; W01.0XXA Fall on same level from slipping, tripping and stumbling without subsequent striking against object, initial encounter; Y99.0 Civilian activity done for income or pay; E78.5 Hyperlipidemia, unspecified; I10 Essential (primary) hypertension; Z79.02 Long term (current) use of antithrombotics/antiplatelets; Z79.891 Long term (current) use of opiate analgesic; Z79.899 Other long term (current) drug therapy; Z72.0 Tobacco use
CPT/HCPCS: 73700; 90471; 90715; 96372; 99283; J2270

== ENCOUNTER 2022-09-08 20:10 | Emergency (ER) | payer OTHER ==
--- NOTE | 2022-09-08 20:19 | ERPHSYRPT ---
- History of Present Illness Time Seen by Provider: 09/08/22 20:18 Source: patient Exam Limitations: no limitations Physician History: This is a 62-year-old white female patient who returns to the emergency department after falling at work and injuring her right hip on 09/01/2022. She was seen in this emergency department on the same date and patient underwent a CT scan of the right hip which revealed a right hip hematoma and no acute fracture or dislocation. Patient became concerned because she restarted her Plavix that she takes because of the presence of a cardiac stent and noticed increased bruising posteriorly and distally to the area of the hematoma. She d oes not have any significant pain. She was just concerned about the bruising that is increased. Patient has a history of hypertension, hyperlipidemia and chronic angina. Patient has no chest pain or shortness of breath at this time. Patient has appointment to see an orthopedic surgeon to evaluate her right hip and hematoma on , 09/11/2022 Occurred: last week (1 week ago) Severity of Pain-Max: none Severity of Pain-Current: none Lower Extremities Pain: hip: right (No significant pain but the area of injury was the right hip 1 week ago) Associated Symptoms: none Allergies/Adverse Reactions: erythromycin base Allergy (Verified 09/08/22 20:20) Rash Home Medications: Clopidogrel Bisulfate [PLAVIX 75 MG Tablet] 75 mg PO DAILY 11/23/14 [History] Rosuvastatin Calcium [Crestor] 10 mg PO DAILY 11/23/14 [History] Hydrocodone/APAP 10/325 mg [[place] 10/325 MG Tablet] 1 tab PO Q4-6HPRN PRN 06/20/16 [History] Cyclobenzaprine HCl [Flexeril] 10 mg PO BID 07/10/19 [History] Evolocumab [Repatha Syringe] 1 tab PO UD 07/10/19 [History] Isosorbide Mononitrate 30 mg [Imdur 30 MG] 1 tab PO DAILY 07/10/19 [History] Lisinopril 10 mg [Zestril 10 MG] 1 tab PO BID 07/10/19 [History] Propranolol HCl [Inderal LA] 1 tab PO DAILY 07/10/19 [History] Amlodipine Besylate [Norvasc] 10 mg PO BID 09/01/22 [History] Famotidine [Pepcid] 40 mg PO BID 09/01/22 [History] Hx Tetanus, Diphtheria Vaccination/Date Given: No Hx Influenza Vaccination/Date Given: No Hx Pneumococcal Vaccination/Date Given: No Travel Risk - International Travel Have you traveled outside of the country in past 3 weeks: No - Coronavirus Screening Are you exhibiting any of the following symptoms?: No Close contact with a COVID-19 positive Pt in past 14-21 Days: No - Vaccine Status Have you recieved a Covid-19 vaccination: Yes 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[place] - Vaccination Dates Date of 2cond Vaccination (if applicable): November 2020 - Review of Systems Constitutional: No Symptoms Eyes: No Symptoms Ears, Nose, & Throat: No Symptoms Respiratory: No Symptoms Cardiac: No Symptoms Abdominal/Gastrointestinal: No Symptoms Genitourinary Symptoms: No Symptoms Musculoskeletal: Fall (1 week ago), Other (Right hip hematoma) Skin: No Symptoms Neurological: No Symptoms Psychological: No Symptoms Endocrine: No Symptoms Hematologic/Lymphatic: No Symptoms Immunological/Allergic: No Symptoms All Other Systems: Reviewed and Negative - Past Medical History Pertinent Past Medical History: Yes Neurological History: No Pertinent History ENT History: No Pertinent History Cardiac History: Angina, Coronary Artery Disease, High Cholesterol, Hypertension Respiratory History: No Pertinent History Endocrine Medical History: No Pertinent History Musculoskeletal History: No Pertinent History GI Medical History: No Pertinent History Psycho-Social History: No Pertinent History Female Reproductive Disorders: No Pertinent History, Fibroids - Past Surgical History Past Surgical History: Yes Neuro Surgical History: No Pertinent History Cardiac: Cardiac Catheterization, Cardiac Stent Respiratory: No Pertinent History Gastrointestinal: No Pertinent History Genitourinary: No Pertinent History Musculoskeletal: Orthopedic Surgery Female Surgical History: Hysterectomy Other Surgical History: states "rods in back,and bilateral rotator cuff surgery" - Social History Smoking Status: Current every day smoker How long have you smoked: 20yrs Exposure to second hand smoke: Yes Drug Use: none Patient Lives Alone: No - Nursing Vital Signs Nursing Vital Signs: Initial Vital Signs Temperature 97.3 F 09/08/22 20:14 Pulse Rate 102 H 09/08/22 20:14 Respiratory Rate 16 09/08/22 20:14 Blood Pressure 199/110 09/08/22 20:14 O2 Sat by Pulse Oximetry 96 09/08/22 20:14 Pain Scale Pain Intensity 4 - Physical Exam General Appearance: no apparent distress, alert, anxiety Eyes, Ears, Nose, Throat Exam: normal ENT inspection, moist mucous membranes Neck Exam: normal inspection, non-tender, supple, full range of motion Cardiovascular/Respiratory Exam: chest non-tender, no respiratory distress Gastrointestinal/Abdominal Exam: non-tender Back Exam: normal inspection, normal range of motion, No CVA tenderness, No vertebral tenderness Hips Exam: right: ecchymosis (With associated hematoma that is nontender), swelling, left: normal inspection, no evidence of injury, bilateral: non-tender, normal range of motion Legs Exam: bilateral leg: non-tender, normal inspection, normal range of motion, no evidence of injury Knees Exam: bilateral knee: non-tender, normal inspection, normal range of motion, no evidence of injury Ankle Exam: bilateral ankle: non-tender, normal inspection, normal range of motion, no evidence of injury Foot Exam: bilateral foot: non-tender, normal inspection, normal range of motion, no evidence of injury Neuro/Tendon Exam: normal sensation, normal motor functions, normal tendon functions, responds to pain, no evidence tendon injury Mental Status Exam: alert, oriented x 3, cooperative Skin Exam: ecchymosis (Ecchymosis in the area of the hematoma as well as near circumferential ecchymosis of varying age distal to the hematoma in the right hip), other (No evidence of infected hematoma of the right hip) SpO2 Interpretation: normal O2 Delivery: Room Air - Course Nursing assessment & vital signs reviewed: Yes Ordered Tests: Active Orders 24 hr Category Date Time Status CBC W DIFF Stat Lab 09/08/22 21:00 Completed Lab/Rad Data: Laboratory Result Diagrams 09/08/22 21:00 Laboratory Results 09/08/22 Range/Units 21:00 WBC 8.0 (4.0-10.5) x10^3/uL RBC 4.52 (4.1-5.4) x10^6/uL Hgb 13.4 (12.0-16.0) g/dL Hct 40.5 (35-47) % MCV 89.6 (78-100) fL MCH 29.6 (26-32) pg MCHC 33.1 (32-36) g/dL RDW 12.5 (11.5-14.0) % Plt Count 293 (150-450) x10^3/uL MPV 9.2 (7.5-11.0) fL Gran % 62.1 (36.0-66.0) % Immature Gran % (Auto) 0.2 (0.00-0.4) % Nucleat RBC Rel Count 0.0 (0.00-0.1) % Eos # (Auto) 0.20 (0-0.5) x10^3/uL Immature Gran # (Auto) 0.02 (0.00-0.03) x10^3u/L Absolute Lymphs (auto) 2.18 (1.0-4.6) x10^3/uL Absolute Monos (auto) 0.61 (0.0-1.3) x10^3/uL Absolute Nucleated RBC 0.00 (0.00-0.01) x10^3u/L Lymphocytes % 27.1 (24.0-44.0) % Monocytes % 7.6 (0.0-12.0) % Eosinophils % 2.5 (0.00-5.0) % Basophils % 0.5 (0.0-0.4) % Absolute Granulocytes 4.98 (1.4-6.9) x10^3/uL Basophils # 0.04 (0-0.4) x10^3/uL - Progress Progress: unchanged Progress Note: 09/08/22 20:56 Patient's medical issue is 1 of low complexity. The level of complexity in the work-up performed is based on review of the patient's past medical history, review the patient's medication list, review of the patient's drug allergy list, history of present illness and findings on physical examination. The work-up includes a CBC. Patient does not need a radiographic study. This patient has a hematoma that is only a week old. She is now more active in the last 48 hours and restarted her Plavix 2 days ago. That is when she noticed the increased in ecchymosis Counseled pt/family regarding: lab results, diagnosis, need for follow-up Medical Desision Making - Independent Historian Additional History obtained from: Child (Daughter) - Diagnostic Testing Diagnostic test were ordered, analyzed, and reviewed by me: Yes - Risk of complications Low Risk: Low risk of morbidity from additional dx testing or treatment - Departure Departure Disposition: Home Clinical Impression: Hematoma of right hip Condition: Stable Critical Care Time: No Referrals: MIKI MITCHELL [Primary Care Provider] - Follow up/PCP as directed Additional Instructions: Keep your appointment with the orthopedic surgeon that you have on 09/11/2022. Hold your Plavix for 48 hours then restart. Forms: Work/School Release Form
[2022-09-08 21:03] VITALS: BP 169/70; PULSE 90; O2SAT 97
[2022-09-08 21:04] LABS: Absolute Neutrophil Ct (ANC) 4.98 x10^3/uL (1.4-6.9); BASOPHIL % 0.5 % (0.0-0.4); Basophil (Absolute #) 0.04 x10^3/uL (0-0.4); Eosinophil % 2.5 % (0.00-5.0); Hematocrit 40.5 % (35-47); Hemoglobin 13.4 g/dL (12.0-16.0); IMMATURE GRAN # 0.02 x10^3u/L (0.00-0.03); IMMATURE GRAN % 0.2 % (0.00-0.4); Lymphocyte (Absolute #) 2.18 x10^3/uL (1.0-4.6); Lymphocytes % 27.1 % (24.0-44.0); Mean Cell Volume 89.6 fL (78-100); Mean Corpuscular Hemoglobin 29.6 pg (26-32); Mean Corpuscular Hgb Concent. 33.1 g/dL (32-36); Mean Platelet Volume 9.2 fL (7.5-11.0); Monocyte (Absolute #) 0.61 x10^3/uL (0.0-1.3); Monocytes % 7.6 % (0.0-12.0); Neutrophil % 62.1 % (36.0-66.0); Platelet Count 293 x10^3/uL (150-450); Red Blood Count 4.52 x10^6/uL (4.1-5.4); Red Cell Distribution Width 12.5 % (11.5-14.0)
== END 2022-09-08 21:19 | disposition home or self-care (01) ==
LOC: ED 20:10
DX: S70.01XD Contusion of right hip, subsequent encounter (principal); W19.XXXD Unspecified fall, subsequent encounter; I10 Essential (primary) hypertension; E78.5 Hyperlipidemia, unspecified; Z79.02 Long term (current) use of antithrombotics/antiplatelets; Z79.899 Other long term (current) drug therapy; Z72.0 Tobacco use
CPT/HCPCS: 36415; 85025; 99282

== ENCOUNTER 2023-06-15 05:12 | Emergency (ER) | payer MEDICARE ==
[2023-06-15] MEDS ORDERED: ROCEPHIN 2 Gm-D5w 50ML BAG** 2 G/50 ML IVPB IV ONE ×2 (05:13→07:09)
[2023-06-15 05:45] VITALS: TEMP 97.5
[2023-06-15 05:46] LABS: Absolute Neutrophil Ct (ANC) 9.89 x10^3/uL (1.4-6.9); BASOPHIL % 0.5 % (0.0-0.4); Basophil (Absolute #) 0.06 x10^3/uL (0-0.4); Eosinophil % 2.6 % (0.00-5.0); Eosinophil (Absolute #) 0.34 x10^3/uL (0-0.5); Hematocrit 45.5 % (35-47); Hemoglobin 14.7 g/dL (12.0-16.0); IMMATURE GRAN # 0.06 x10^3u/L (0.00-0.03); IMMATURE GRAN % 0.5 % (0.00-0.4); Lymphocyte (Absolute #) 1.88 x10^3/uL (1.0-4.6); Lymphocytes % 14.3 % (24.0-44.0); Mean Cell Volume 92.7 fL (78-100); Mean Corpuscular Hemoglobin 29.9 pg (26-32); Mean Corpuscular Hgb Concent. 32.3 g/dL (32-36); Mean Platelet Volume 9.2 fL (7.5-11.0); Monocyte (Absolute #) 0.92 x10^3/uL (0.0-1.3); Neutrophil % 75.1 % (36.0-66.0); Platelet Count 282 x10^3/uL (150-450); Red Blood Count 4.91 x10^6/uL (4.1-5.4); Red Cell Distribution Width 12.4 % (11.5-14.0); White Blood Count 13.2 x10^3/uL (4.0-10.5)
[2023-06-15 05:58] LABS: Appearance Cloudy (Clear); Bacteria Many /HPF (None Seen); Bilirubin Negative (Negative); Blood Large (Negative); Epithelial Cells None Seen /HPF (None Seen); Glucose, Urine Negative (Negative); Ketones Negative (Negative); Leukocyte Esterase Large (Negative); Nitrite Negative (Negative); Protein,Urine Dip 300 (Negative); RBC >100 /HPF (0-5); Specific Gravity 1.015 (1.005-1.030); Urobilinogen 0.2 mg/dL (0.2); WBC >100 /HPF (0-5)
[2023-06-15 06:12] LABS: ALBUMIN 4.5 g/dL (3.5-5.0); ANION GAP 6.7 MEQ/L (5-15); BILIRUBIN,TOTAL 0.4 mg/dL (0.2-1.3); Calcium 9.5 mg/dL (8.4-10.2); Creatinine 1 0.98 mg/dL (0.52-1.04); EST GLOMERULAR FILTRATION RATE 65.7 ML/MIN; Potassium 4.2 mmol/L (3.5-5.1); Total Protein 7.9 g/dL (6.3-8.2)
[2023-06-15 06:16] LABS: ADD URINE CULTURE? YES (NO)
[2023-06-15] MEDS ORDERED: Zofran 4 MG/2 ML VIAL ONE (06:41)
[2023-06-15] MEDS ORDERED: MORPHINE SULFATE 4 MG INJ ONE (06:42)
[2023-06-15] MEDS: MORPHINE SULFATE 4 MG INJ IV ONE (06:43)
[2023-06-15] MEDS: Zofran 4 MG/2 ML VIAL IV ONE (06:43)
--- NOTE | 2023-06-15 06:47 | ERPHSYRPT ---
- History of Present Illness Source: patient, EMS Exam Limitations: no limitations Patient Subjective Stated Complaint: pt states that approx 1 week ago she thought she had a "kidney infection" so she took some leftover amoxicillin that she had at home then felt better for a few days. she reports that she woke up at approx 0330 with severe pain just above her pubic symphysis and burning with uri [place]. also reports blood in urine. Triage Nursing Assessment: pt ambulated into room 7 independently with slow steady gait after standing on scale for weight acquisition. pt is alert and oriented times three, able to speak in complete sentences, able to move all extremities, and with resp even and unlabored. skin is warm, pink, dry, and intact. pt c/o 9/10 sharp/ pressure pain just above pubic symphysis as well as burning upon urination. urine is nonodiferous, clear, light pink with a small clot noted. denies sob, difficulty breathing, changes to appetite, difficulty with bowel elimination, urgency, frequency, dribbling, or retention. denies cp, lightheadedness , or dizziness. Hx Tetanus, Diphtheria Vaccination/Date Given: Yes Hx Influenza Vaccination/Date Given: No Hx Pneumococcal Vaccination/Date Given: No <CARINE VILLATORO - Last Filed: 06/15/23 06:49> <CAROL ANN ALCOCER - Last Filed: 06/15/23 07:46> - History of Present Illness Time Seen by Provider: 06/15/23 06:12 Physician History: 63-year-old female presented in the ER with chief complaint of lower abdominal pain sudden onset around 3:30 AM waking her up from sleep and noticed some blood in the urine. Patient reports having UTI symptoms almost a week ago, have taken leftover amoxicillin and started to feel better until this morning. Denies any fever or chills. Denies any flank pain. Not taking any novel anticoagulants. Reports dysuria and hematuria currently. (CARINE VILLATORO) Allergies/Adverse Reactions: erythromycin base Allergy (Verified 06/15/23 05:16) Rash Home Medications: Clopidogrel Bisulfate [PLAVIX 75 MG Tablet] 75 mg PO DAILY 11/23/14 [History] Rosuvastatin Calcium [Crestor] 10 mg PO DAILY 11/23/14 [History] Hydrocodone/APAP 10/325 mg [[place] 10/325 MG Tablet] 1 tab PO Q4-6HPRN PRN 06/20/16 [History] Cyclobenzaprine HCl [Flexeril] 10 mg PO BID 07/10/19 [History] Evolocumab [Repatha Syringe] 1 tab PO UD 07/10/19 [History] Isosorbide Mononitrate 30 mg [Imdur 30 MG] 1 tab PO DAILY 07/10/19 [History] Lisinopril 10 mg [Zestril 10 MG] 1 tab PO BID 07/10/19 [History] Propranolol HCl [Inderal LA] 1 tab PO DAILY 07/10/19 [History] Amlodipine Besylate [Norvasc] 5 mg PO BID 09/01/22 [History] Famotidine [Pepcid] 40 mg PO BID 09/01/22 [History] Metformin HCl [Metformin HCl ER] 1 tab PO DAILY 06/15/23 [History] Travel Risk - International Travel Have you traveled outside of the country in past 3 weeks: No - Coronavirus Screening Are you exhibiting any of the following symptoms?: No Close contact with a COVID-19 positive Pt in past 14-21 Days: No - Vaccine Status Have you recieved a Covid-19 vaccination: Yes 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: [email or web address] - Vaccination Dates Date of 2cond Vaccination (if applicable): November 2020 <CARINE VILLATORO - Last Filed: 06/15/23 06:49> - Review of Systems Constitutional: No Symptoms Eyes: No Symptoms Ears, Nose, & Throat: No Symptoms Respiratory: No Symptoms Cardiac: No Symptoms Abdominal/Gastrointestinal: Abdominal Pain, Nausea Genitourinary Symptoms: Hematuria Musculoskeletal: No Symptoms Skin: No Symptoms Neurological: No Symptoms Psychological: No Symptoms <CARINE VILLATORO - Last Filed: 06/15/23 06:49> - Past Medical History Pertinent Past Medical History: Yes Neurological History: No Pertinent History ENT History: No Pertinent History Cardiac History: Angina, Coronary Artery Disease, High Cholesterol, Hypertension Respiratory History: No Pertinent History Endocrine Medical History: No Pertinent History Musculoskeletal History: No Pertinent History GI Medical History: No Pertinent History History: Other Psycho-Social History: No Pertinent History Female Reproductive Disorders: No Pertinent History, Fibroids Other Medical History: kidney infection - Past Surgical History Past Surgical History: Yes Neuro Surgical History: No Pertinent History Cardiac: Cardiac Catheterization, Cardiac Stent Respiratory: No Pertinent History Gastrointestinal: No Pertinent History Genitourinary: No Pertinent History Musculoskeletal: Orthopedic Surgery Female Surgical History: Hysterectomy Other Surgical History: states "rods in back,and bilateral rotator cuff surgery". hematoma removed from right hip. - Social History Smoking Status: Current every day smoker How long have you smoked: 20yrs Exposure to second hand smoke: Yes Drug Use: none Patient Lives Alone: No <CARINE VILLATORO - Last Filed: 06/15/23 06:49> - Physical Exam General Appearance: no apparent distress, alert Eye Exam: PERRL/EOMI Ears, Nose, Throat Exam: normal ENT inspection Neck Exam: normal inspection, non-tender, supple, full range of motion Respiratory Exam: normal breath sounds, lungs clear Cardiovascular Exam: regular rate/rhythm, normal heart sounds Gastrointestinal/Abdomen Exam: soft, normal bowel sounds, tenderness (Appropriate back and left lower quadrant) Back Exam: No CVA tenderness Extremity Exam: normal inspection, normal range of motion Neurologic Exam: alert, oriented x 3, cooperative, bag machine tender II-XII nml as tested Skin Exam: normal color SpO2 Interpretation: normal SpO2: 99 O2 Delivery: Room Air <CARINE VILLATORO - Last Filed: 06/15/23 06:49> - Nursing Vital Signs Nursing Vital Signs: Initial Vital Signs Temperature 97.5 F 06/15/23 05:23 Pulse Rate 65 06/15/23 05:23 Respiratory Rate 22 06/15/23 05:23 Blood Pressure 209/102 06/15/23 05:23 O2 Sat by Pulse Oximetry 98 06/15/23 05:23 Pain Scale Pain Intensity 5 Ordered Tests: Active Orders 24 hr Category Date Time Status IV Insertion STAT Care 06/15/23 06:12 Active ABDOMEN AND PELVIS W/0 CONTRAS [CT] Stat Exams 06/15/23 06:12 Completed CBC W DIFF Stat Lab 06/15/23 05:40 Completed CMP Stat Lab 06/15/23 05:40 Completed CULTURE,URINE Stat Lab 06/15/23 05:42 Received UA W/RFX UR CULTURE Stat Lab 06/15/23 05:42 Completed Medication Summary Discontinued Medications Generic Name Dose Route Start Last Admin Trade Name Freq PRN Reason Stop Dose Admin Ceftriaxone Sodium 2 gm/ 100 mls @ 200 mls/hr 06/15/23 06:45 06/15/23 07:12 Sodium Chloride IV 06/15/23 07:14 200 mls/hr STAT STA Administration Ceftriaxone Sodium/Dextrose Confirm 06/15/23 07:09 Rocephin 2 Gm-D5w 50ml Bag Administered 06/15/23 07:10 Dose 2 g in 50 mls @ ud IV .STK-MED ONE Ceftriaxone Sodium/Dextrose 2 g in 50 mls @ ud 06/15/23 05:13 Rocephin 2 Gm-D5w 50ml Bag IV 06/15/23 05:14 .STK-MED ONE Morphine Sulfate 4 mg 06/15/23 06:12 06/15/23 06:43 Morphine Sulfate 4 Mg/Ml Injection IV 06/15/23 06:13 4 mg STAT ONE Administration Morphine Sulfate Confirm 06/15/23 06:42 Morphine Sulfate 4 Mg/Ml Injection Administered 06/15/23 06:43 Dose 4 mg .ROUTE .STK-MED ONE Ondansetron HCl 4 mg 06/15/23 06:12 06/15/23 06:43 Ondansetron Hcl 4 Mg/2 Ml Vial IV 06/15/23 06:13 4 mg STAT ONE Administration Ondansetron HCl Confirm 06/15/23 06:41 Ondansetron Hcl 4 Mg/2 Ml Vial Administered 06/15/23 06:42 Dose 4 mg .ROUTE .STK-MED ONE Lab/Rad Data: Laboratory Result Diagrams 06/15/23 05:40 06/15/23 05:40 Laboratory Results 06/15/23 06/15/23 06/15/23 Range/Units 05:42 05:40 05:40 WBC 13.2 H (4.0-10.5) x10^3/uL RBC 4.91 (4.1-5.4) x10^6/uL Hgb 14.7 (12.0-16.0) g/dL Hct 45.5 (35-47) % MCV 92.7 (78-100) fL MCH 29.9 (26-32) pg MCHC 32.3 (32-36) g/dL RDW 12.4 (11.5-14.0) % Plt Count 282 (150-450) x10^3/uL MPV 9.2 (7.5-11.0) fL Gran % 75.1 H (36.0-66.0) % Immature Gran % (Auto) 0.5 H (0.00-0.4) % Nucleat RBC Rel Count 0.0 (0.00-0.1) % Eos # (Auto) 0.34 (0-0.5) x10^3/uL Immature Gran # (Auto) 0.06 H (0.00-0.03) x10^3u/L Absolute Lymphs (auto) 1.88 (1.0-4.6) x10^3/uL Absolute Monos (auto) 0.92 (0.0-1.3) x10^3/uL Absolute Nucleated RBC 0.00 (0.00-0.01) x10^3u/L Lymphocytes % 14.3 L (24.0-44.0) % Monocytes % 7.0 (0.0-12.0) % Eosinophils % 2.6 (0.00-5.0) % Basophils % 0.5 (0.0-0.4) % Absolute Granulocytes 9.89 H (1.4-6.9) x10^3/uL Basophils # 0.06 (0-0.4) x10^3/uL Sodium 138 (137-145) mmol/L Potassium 4.2 (3.5-5.1) mmol/L Chloride 107 (98-107) mmol/L Carbon Dioxide 28 (22-30) mmol/L Anion Gap 6.7 (5-15) MEQ/L BUN 11 (7-17) mg/dL Creatinine 0.98 (0.52-1.04) mg/dL Estimated GFR 65.7 ML/MIN Glucose 109 H (74-106) mg/dL Calcium 9.5 (8.4-10.2) mg/dL Total Bilirubin 0.40 (0.2-1.3) mg/dL AST 24 (14-36) U/L ALT 13 (0-35) U/L Alkaline Phosphatase 73 (38-126) U/L Serum Total Protein 7.9 (6.3-8.2) g/dL Albumin 4.5 (3.5-5.0) g/dL Urine Color Red A (Yellow) Urine Appearance Cloudy A (Clear) Urine pH 7.0 (4.6-8.0) Ur Specific [place] 1.015 (1.005-1.030) Urine Protein 300 A (Negative) Urine Glucose (UA) Negative (Negative) mg/dL Urine Ketones Negative (Negative) Urine Blood Large A (Negative) Urine Nitrite Negative (Negative) Urine Bilirubin Negative (Negative) Urine Urobilinogen 0.2 (0.2) mg/dL Ur Leukocyte Esterase Large A (Negative) Urine Microscopic RBC >100 A (0-5) /HPF Urine Microscopic WBC >100 A (0-5) /HPF Ur Epithelial Cells None Seen (None Seen) /HPF Urine Bacteria Many A (None Seen) /HPF Urine Culture Reflexed YES (NO) <CARINE VILLATORO - Last Filed: 06/15/23 06:49> - Progress Air Movement: good Blood Culture(s) Obtained: Yes Antibiotics given: Yes Counseled pt/family regarding: lab results, diagnosis, need for follow-up, rad results <CAROL NAN ALCOCER - Last Filed: 06/15/23 07:46> - Progress Progress Note: 06/15/23 06:49 She is given symptomatic treatment for pain. Workup showed white count of 13, fairly unremarkable chemistries, does have UTI. Given a dose of Rocephin. CT abdomen pelvis is pending, care is transferred to Dr. Alcocer at shift change for reevaluation after CT results and final disposition. (CARINE VILLATORO) 06/15/23 07:44 I reviewed and interpreted the patient's laboratory data results. Patient has a significant urinary tract infection. Patient received Rocephin 1 g intravenously which was ordered by Dr. Villatoro. I am sending a prescription of cefdinir remotely to the patient's pharmacy for further treatment. The CT scan of the abdomen pelvis without contrast was interpreted by the radiologist and I reviewed the impression. There is no obvious acute abnormality in this unenhanced study. 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 There is evidence of sigmoid diverticulosis without diverticulitis. There is mild right hydronephrosis with question of dilatation at the pelvic ureteral junction without evidence of calculus in the ureter at the pelvic ureteral junction. (CAROL ANN ALCOCER) Medical Desision Making - Independent Historian Additional History obtained from: Family - Diagnostic Testing Diagnostic test were ordered, analyzed, and reviewed by me: Yes Radiological Interpretation: Reviewed by me, Teleradiologist Report - Risk of complications The pt has a mod risk of morbidity or mortality based on: Need for prescription drug management <CAROL ANN ALCOCER - Last Filed: 06/15/23 07:46> <CARINE VILLATORO - Last Filed: 06/15/23 06:49> - Departure Departure Disposition: Home Critical Care Time: No <CAROL ANN ALCOCER - Last Filed: 06/15/23 07:46> - Departure Clinical Impression: Hematuria, Urinary tract infection, Hydronephrosis Condition: Referrals: MIKI MITCHELL [Primary Care Provider] - Follow up/PCP as directed Additional Instructions: Drink plenty of fluids. If there are no contraindications use Tylenol ibuprofen for pain and fever control. Take your antibiotics and other medications as prescribed. Call your primary care provider today, 06/15/2023, to make arrangements for follow-up appointment in the next 3 to 5 days for further eval uation and management and possible referral to urology for further evaluation. Prescriptions: Cefdinir 300 mg PO BID #14 cap
[2023-06-15] MEDS: SODIUM CHLORIDE MINI IV STA (07:12)
[2023-06-15] MEDS: CEFTRIAXONE IV STA (07:12)
--- NOTE | 2023-06-15 07:26 | XRAY ---
CLINICAL HISTORY: lower abd pain TECHNIQUE: Contiguous axial images were obtained from the level of the diaphragm to the pubic symphysis without intravenous or oral contrast. Coronal and sagittal reconstructions were likewise performed and indicated to increase the sensitivity for detecting clinically relevant pathology. CT scan was performed according to ALARA (as low as reasonable achievable). COMPARISON: None FINDINGS: The visualized lung bases are clear. Evaluation of the abdominal and pelvic visceral organs is limited without intravenous contrast. The unenhanced liver, spleen, pancreas, and adrenal glands are grossly unremarkable. The gallbladder is postsurgical status. The kidneys are normal in size and attenuation without obvious calcification. Mild right hydronephrosis with transition at the pelviureteric juntion. There is no left hydronephrosis or perinephric stranding. Subtle hypodense lesion of 1cm in upper pole of right kidney, probable cortical cyst. The ureters are normal in caliber. No adenopathy or fluid collections are seen. Sigmoid diverticulosis without features of acute diverticulitis. No evidence of focal or diffuse bowel wall thickening or evidence of bowel obstruction is seen. No inflamed appendix is visualized in the right lower quadrant. Multifocal aortoiliac atherosclerotic calcifications. Focal aneursymal dilatation (2.6 x 2.7cm in biaxial dimension) of infrarenal abdominal aorta just before its bifurcation with vascular stent extending into bilateral common iliac arteries. Rest of the aorta is normal in caliber. The urinary bladder is normal in contour. Pelvic viscera are grossly unremarkable. No aggressive appearing osseous lesions are identified. Spinal instrumentation from L2 to L5 levels. IMPRESSION: 1.No obvious acute abnormality in the unenhanced study. 2.Focal aneursymal dilatation of infrarenal abdominal aorta just before its bifurcation with vascular stent. 3.Sigmoid diverticulosis without features of acute diverticulitis. 4. Mild right hydronephrosis with transition at the pelviureteric juntion. This may suggest pelviureteric junction obstruction. No overt calculus. Electronically Signed by: Dr. Victor Manuel Saldana MD. (06/15/2023 07:22:55 EST)
[2023-06-15 08:00] VITALS: BP 149/74; PULSE 70; RESP 16; O2SAT 97
== END 2023-06-15 08:01 | disposition home or self-care (01) ==
LOC: ED 05:12
DX: N39.0 Urinary tract infection, site not specified (principal); R31.9 Hematuria, unspecified; N13.30 Unspecified hydronephrosis; R10.30 Lower abdominal pain, unspecified; E78.5 Hyperlipidemia, unspecified; I10 Essential (primary) hypertension; Z79.02 Long term (current) use of antithrombotics/antiplatelets; Z79.84 Long term (current) use of oral hypoglycemic drugs; Z79.899 Other long term (current) drug therapy; Z72.0 Tobacco use
CPT/HCPCS: 36000; 36415; 74176; 80053; 81001; 85025; 87077; 87086; 87186; 99284; J0696; J2270; J2405

== ENCOUNTER 2024-07-06 19:43 | Emergency (ER) | payer MEDICARE ==
[2024-07-06 20:03] VITALS: TEMP 96.5
[2024-07-06 21:13] LABS: Appearance Clear (Clear); Bacteria None Seen /HPF (None Seen); Bilirubin Negative (Negative); Blood Negative (Negative); Epithelial Cells None Seen /HPF (None Seen); Glucose, Urine Negative (Negative); Hyaline Casts NONE SEEN /LPF (0-2); Ketones Negative (Negative); Leukocyte Esterase Negative (Negative); Nitrite Negative (Negative); Protein,Urine Dip Negative (Negative); RBC 0-2 /HPF (0-5); Specific Gravity <=1.005 (1.005-1.030); Urobilinogen 0.2 mg/dL (0.2); WBC 0-2 /HPF (0-5)
--- NOTE | 2024-07-06 21:19 | ERPHSYRPT ---
- History of Present Illness Time Seen by Provider: 07/06/24 20:10 Historian: patient Exam Limitations: no limitations Patient Subjective Stated Complaint: pt states that she has burning when passing gas. pt states that she ate a blueberry muffin last night and thinks that is what is causing the pain Triage Nursing Assessment: pt ambulated into the er; pt is axo x4; c/o abd pain; pt states 4/10 pain to lower abd; pt states constant, cramping, pressure to abd; hyperactive bowel sounds in all quads; pt denies N/V/D; last BM 07/06/24; skin PDW; no respiratory distress present; hypertensive Physician History: Patient is a 64-year-old female presents to emergency department for evaluation of lower abdominal burning pain and pressure. Patient believes she has colitis. Patient reports history of colitis. Patient had a blueberry muffin last night. Patient reports the pain started this morning. Patient believes the pain is secondary to the blueberry muffin. No trauma no fever no nausea vomiting diarrhea no chest pain no shortness of breath. No rash. Symptoms are mild to moderate in intensity. Pain worse with palpation. Pain improved with rest. Patient otherwise feels well. She voices no other complaints or concerns at this time. Portions of this note were created with voice recognition technology. There may be grammatical, spelling, punctuation or sound alike errors Timing/Duration: today Activities at Onset: none Quality: aching Abdominal Pain Onset Location: other (Pain is across the lower abdomen) Pain Radiation: no radiation Severity of Pain-Max: moderate Severity of Pain-Current: mild Modifying Factors: Improves With: other (Pain is constant however palpation worsens pain) Associated Symptoms: denies symptoms Previous symptoms: same symptoms as today (Pain similar to her previous episode of colitis) Allergies/Adverse Reactions: erythromycin base Allergy (Verified 07/06/24 20:03) Rash Home Medications: Clopidogrel Bisulfate [PLAVIX 75 MG Tablet] 75 mg PO DAILY 11/23/14 [History] Rosuvastatin Calcium [Crestor] 10 mg PO DAILY 11/23/14 [History] Hydrocodone/APAP 10/325 mg [Baskin 10/325 MG Tablet] 1 tab PO Q6-8HPRN PRN 06/20/16 [History] Evolocumab [Repatha Syringe] 1 tab PO UD 07/10/19 [History] Isosorbide Mononitrate 30 mg [Imdur 30 MG] 1 tab PO DAILY 07/10/19 [History] Lisinopril 10 mg [Zestril 10 MG] 1 tab PO BID 07/10/19 [History] Propranolol HCl [Inderal LA] 80 tab PO DAILY 07/10/19 [History] Famotidine [Pepcid] 40 mg PO BID 09/01/22 [History] Hx Tetanus, Diphtheria Vaccination/Date Given: Yes Hx Influenza Vaccination/Date Given: No Hx Pneumococcal Vaccination/Date Given: No Travel Risk - International Travel Have you traveled outside of the country in past 3 weeks: No - Emerging Infectious Disease Are you exhibiting symptoms associated with any current EIDs: Yes Symptoms: Abdominal Pain - Review of Systems Constitutional: No Symptoms, No Fever, No Chills Eyes: No Symptoms Ears, Nose, & Throat: No Symptoms Respiratory: No Symptoms, No Cough, No Dyspnea Cardiac: No Symptoms, No Chest Pain, No Edema, No Syncope Abdominal/Gastrointestinal: No Symptoms, No Abdominal Pain, No Nausea, No Vomiting, No Diarrhea Genitourinary Symptoms: No Symptoms, No Dysuria Musculoskeletal: No Symptoms, No Back Pain, No Neck Pain Skin: No Symptoms, No Rash Neurological: No Symptoms, No Dizziness, No Focal Weakness, No Sensory Changes Psychological: No Symptoms Endocrine: No Symptoms Hematologic/Lymphatic: No Symptoms Immunological/Allergic: No Symptoms All Other Systems: Reviewed and Negative - Past Medical History Pertinent Past Medical History: Yes Neurological History: No Pertinent History ENT History: No Pertinent History Cardiac History: Angina, Coronary Artery Disease, High Cholesterol, Hypertension Respiratory History: No Pertinent History Endocrine Medical History: No Pertinent History Musculoskeletal History: No Pertinent History GI Medical History: No Pertinent History History: Other Psycho-Social History: No Pertinent History Female Reproductive Disorders: No Pertinent History, Fibroids Other Medical History: kidney infection - Past Surgical History Past Surgical History: Yes Neuro Surgical History: No Pertinent History Cardiac: Cardiac Catheterization, Cardiac Stent Respiratory: No Pertinent History Gastrointestinal: No Pertinent History Genitourinary: No Pertinent History Musculoskeletal: Orthopedic Surgery Female Surgical History: Hysterectomy Other Surgical History: states "rods in back,and bilateral rotator cuff surgery". hematoma removed from right hip. - Social History Smoking Status: Current every day smoker How long have you smoked: 20yrs Exposure to second hand smoke: Yes Drug Use: none - Social Determinants of Health Will the patient participate in the screening: Yes Do you worry about a steady place to live?: No Do you have any problems with any of the following?: No known problems In the past 12 months,have you had to go without utilities?: No Transportation Issues: No Has anyone in your support network made you feel unsafe?: No Have you or anyone in your house had to go w/o enough food: No - Nursing Vital Signs Nursing Vital Signs: Initial Vital Signs Pulse Rate 69 07/06/24 19:52 Blood Pressure 182/113 07/06/24 19:52 O2 Sat by Pulse Oximetry 98 07/06/24 19:52 Pain Scale Pain Intensity 6 - Physical Exam General Appearance: no apparent distress, alert Eye Exam: PERRL/EOMI, eyes nml inspection Ears, Nose, Throat Exam: normal ENT inspection, pharynx normal, moist mucous membranes Neck Exam: normal inspection, full range of motion Respiratory Exam: normal breath sounds, lungs clear, No respiratory distress Cardiovascular Exam: regular rate/rhythm, normal heart sounds Gastrointestinal/Abdomen Exam: soft, tenderness, other (Tenderness to palpation across the lower abdomen), No mass Back Exam: normal inspection, normal range of motion, No CVA tenderness, No vertebral tenderness Extremity Exam: normal inspection, normal range of motion, pelvis stable Neurologic Exam: alert, oriented x 3, cooperative, normal mood/affect, sensation nml, No motor deficits Skin Exam: normal color, warm, dry Lymphatic Exam: No adenopathy SpO2 Interpretation: normal SpO2: 98 O2 Delivery: Room Air - Course Nursing assessment & vital signs reviewed: Yes - CT Exams Abdomen/Pelvis CT Interpretation: Tele-radiologist Report (Diverticulitis) Ordered Tests: Active Orders 24 hr Category Date Time Status IV Insertion STAT Care 07/06/24 20:52 Active ABDOMEN AND PELVIS W/0 CONTRAS [CT] Stat Exams 07/06/24 20:53 Taken CBC W DIFF Stat Lab 07/06/24 21:30 Completed CMP Stat Lab 07/06/24 21:30 Completed LIPASE Stat Lab 07/06/24 21:30 Completed TROPONIN Q4H Lab 07/06/24 21:30 Completed TROPONIN Q4H Lab 07/07/24 01:00 Ordered TROPONIN Q4H Lab 07/07/24 05:00 Ordered UA W/RFX UR CULTURE Stat Lab 07/06/24 20:54 Completed Medication Summary Generic Name Dose Route Start Last Admin Trade Name Zully PRN Reason Stop Dose Admin Sodium Chloride 1,000 mls @ 100 mls/hr 07/06/24 21:00 07/06/24 21:42 Sodium Chloride 0.9% 1000 Ml IV 08/05/24 20:59 100 mls/hr .Q10H MYRNA Administration Levofloxacin/Dextrose 500 mg in 100 mls @ 100 mls/hr 07/06/24 22:48 Levofloxacin 500mg/100ml D5w IV 07/06/24 23:47 STAT STA Discontinued Medications Generic Name Dose Route Start Last Admin Trade Name Zully PRN Reason Stop Dose Admin Metronidazole 500 mg in 100 mls @ 200 mls/hr 07/06/24 22:48 07/06/24 23:05 Flagyl 500 Mg Ivpb IV 07/06/24 23:17 200 ml/hr STAT STA 200 mls/hr Administration Metronidazole Confirm 07/06/24 22:57 Flagyl 500 Mg Ivpb Administered 07/06/24 22:58 Dose 500 mg in 100 mls @ ud IV .STK-MED ONE Ketorolac Tromethamine 30 mg 07/06/24 20:52 07/06/24 21:40 Ketorolac Tromethamine 30 Mg/Ml Inj IV 07/06/24 20:53 30 mg STAT ONE Administration Ketorolac Tromethamine Confirm 07/06/24 21:39 Ketorolac Tromethamine 30 Mg/Ml Inj Administered 07/06/24 21:40 Dose 30 mg .ROUTE .STK-MED ONE Morphine Sulfate 2 mg 07/06/24 22:50 07/06/24 23:03 Morphine Sulfate 2 Mg/Ml Inj IV 07/06/24 22:51 2 mg STAT ONE Administration Morphine Sulfate Confirm 07/06/24 22:57 Morphine Sulfate 2 Mg/Ml Inj Administered 07/06/24 22:58 Dose 2 mg .ROUTE .STK-MED ONE Ondansetron HCl 4 mg 07/06/24 22:50 07/06/24 23:02 Ondansetron Hcl 4 Mg/2 Ml Vial IV 07/06/24 22:51 4 mg STAT ONE Administration Ondansetron HCl Confirm 07/06/24 22:56 Ondansetron Hcl 4 Mg/2 Ml Vial Administered 07/06/24 22:57 Dose 4 mg .ROUTE .STK-MED ONE Lab/Rad Data: Laboratory Result Diagrams 07/06/24 21:30 07/06/24 21:30 Laboratory Results 07/06/24 07/06/24 07/06/24 Range/Units 21:30 21:30 21:30 WBC 8.9 (3.98-10.04) x10^3/uL RBC 4.61 (3.93-5.22) x10^6/uL Hgb 14.0 (11.2-15.7) g/dL Hct 42.0 (34.1-44.9) % MCV 91.1 (79.4-94.8) fL MCH 30.4 (25.6-32.2) pg MCHC 33.3 (32.2-35.5) g/dL RDW 13.0 (11.7-14.4) % Plt Count 285 (182-369) x10^3/uL MPV 8.9 L (9.4-12.3) fL Gran % 69.1 (34.0-71.1) % Immature Gran % (Auto) 0.3 (0.001-0.429) % Nucleat RBC Rel Count 0.0 (0.00-0.2) % Eos # (Auto) 0.22 (0.04-0.36) x10^3/uL Immature Gran # (Auto) 0.03 (0.001-0.031) x10^3u/L Absolute Lymphs (auto) 1.82 (1.18-3.74) x10^3/uL Absolute Monos (auto) 0.66 (0.24-0.86) x10^3/uL Absolute Nucleated RBC 0.00 (0.00-0.012) x10^3u/L Lymphocytes % 20.4 (19.3-51.7) % Monocytes % 7.4 (4.7-12.5) % Eosinophils % 2.5 (0.7-5.8) % Basophils % 0.3 (0.1-1.2) % Absolute Granulocytes 6.16 H (1.56-6.13) x10^3/uL Basophils # 0.03 (0.01-0.08) x10^3/uL Sodium 139 (135-145) mmol/L Potassium 4.5 (3.5-5.1) mmol/L Chloride 106 (98-107) mmol/L Carbon Dioxide 24 (22-30) mmol/L Anion Gap 13.5 (5-15) MEQ/L BUN 14 (7-17) mg/dL Creatinine 1.02 (0.52-1.04) mg/dL Estimated GFR 62.2 ML/MIN Glucose 91 (74-106) mg/dL Calcium 9.4 (8.4-10.2) mg/dL Total Bilirubin 0.50 (0.2-1.3) mg/dL AST 26 (14-36) U/L ALT 24 (0-35) U/L Alkaline Phosphatase 64 (38-126) U/L Troponin I 0.016 (0.000-0.033) ng/mL Serum Total Protein 6.6 (6.3-8.2) g/dL Albumin 4.1 (3.5-5.0) g/dL Lipase 69 (23-300) U/L Urine Color (Yellow) Urine Appearance (Clear) Urine pH (4.6-8.0) Ur Specific [place] (1.005-1.030) Urine Protein (Negative) Urine Glucose (UA) (Negative) mg/dL Urine Ketones (Negative) Urine Blood (Negative) Urine Nitrite (Negative) Urine Bilirubin (Negative) Urine Urobilinogen (0.2) mg/dL Ur Leukocyte Esterase (Negative) U Hyaline Cast (Auto) (0-2) /LPF Urine Microscopic RBC (0-5) /HPF Urine Microscopic WBC (0-5) /HPF Ur Epithelial Cells (None Seen) /HPF Urine Bacteria (None Seen) /HPF Urine Culture Reflexed (NO) 07/06/24 Range/Units 20:54 WBC (3.98-10.04) x10^3/uL RBC (3.93-5.22) x10^6/uL Hgb (11.2-15.7) g/dL Hct (34.1-44.9) % MCV (79.4-94.8) fL MCH (25.6-32.2) pg MCHC (32.2-35.5) g/dL RDW (11.7-14.4) % Plt Count (182-369) x10^3/uL MPV (9.4-12.3) fL Gran % (34.0-71.1) % Immature Gran % (Auto) (0.001-0.429) % Nucleat RBC Rel Count (0.00-0.2) % Eos # (Auto) (0.04-0.36) x10^3/uL Immature Gran # (Auto) (0.001-0.031) x10^3u/L Absolute Lymphs (auto) (1.18-3.74) x10^3/uL Absolute Monos (auto) (0.24-0.86) x10^3/uL Absolute Nucleated RBC (0.00-0.012) x10^3u/L Lymphocytes % (19.3-51.7) % Monocytes % (4.7-12.5) % Eosinophils % (0.7-5.8) % Basophils % (0.1-1.2) % Absolute Granulocytes (1.56-6.13) x10^3/uL Basophils # (0.01-0.08) x10^3/uL Sodium (135-145) mmol/L Potassium (3.5-5.1) mmol/L Chloride (98-107) mmol/L Carbon Dioxide (22-30) mmol/L Anion Gap (5-15) MEQ/L BUN (7-17) mg/dL Creatinine (0.52-1.04) mg/dL Estimated GFR ML/MIN Glucose (74-106) mg/dL Calcium (8.4-10.2) mg/dL Total Bilirubin (0.2-1.3) mg/dL AST (14-36) U/L ALT (0-35) U/L Alkaline Phosphatase (38-126) U/L Troponin I (0.000-0.033) ng/mL Serum Total Protein (6.3-8.2) g/dL Albumin (3.5-5.0) g/dL Lipase (23-300) U/L Urine Color Yellow (Yellow) Urine Appearance Clear (Clear) Urine pH 6.0 (4.6-8.0) Ur Specific [place] <=1.005 (1.005-1.030) Urine Protein Negative (Negative) Urine Glucose (UA) Negative (Negative) mg/dL Urine Ketones Negative (Negative) Urine Blood Negative (Negative) Urine Nitrite Negative (Negative) Urine Bilirubin Negative (Negative) Urine Urobilinogen 0.2 (0.2) mg/dL Ur Leukocyte Esterase Negative (Negative) U Hyaline Cast (Auto) NONE SEEN (0-2) /LPF Urine Microscopic RBC 0-2 (0-5) /HPF Urine Microscopic WBC 0-2 (0-5) /HPF Ur Epithelial Cells None Seen (None Seen) /HPF Urine Bacteria None Seen (None Seen) /HPF Urine Culture Reflexed NO (NO) - Progress Progress: improved Progress Note: 64-year-old female presents to our emergency department for evaluation of lower abdominal pain. Patient reports she has a history of colitis. Abdominal pain started today. Physical exam reveals some tenderness at the lower abdomen. No peritoneal signs. No rebound. CT scan reveals diverticulitis. Patient re assessed. Patient reports her pain improved with the Toradol however is requesting additional pain medication. A order for morphine and Zofran entered. Patient received Levaquin and Flagyl IV piggyback. Patient is requesting discharge. We advise hospitalization for further evaluation and treatment. Patient declined. Patient states she prefers outpatient management. A prescription for Levaquin Flagyl and Baskin forwarded to patient's pharmacy. Patient agrees to follow-up with her primary care doctor within 48 hours for reevaluation. Patient voices no other complaints or concerns at this time. Portions of this note were created with voice recognition technology. There may be grammatical, spelling, punctuation or sound alike errors Complexity of problem addressed is moderate acute complicated. No critical care time. Complex of data reviewed and analyzed is moderate. Test ordered chest reviewed results analyzed and correlated clinically with history and physical exam. Risk of complication and or risk of morbidity/mortality of patient management is high. Patient received morphine IV for pain control. A prescription for Levaquin, Flagyl, and Baskin forwarded to patient's pharmacy. Vital stable. Time spent to discharge patient is approximately 15 minutes. Plan of care established for shared decision making. No social determinants of health present to impede follow-up. Portions of this note were created with voice recognition technology. There may be grammatical, spelling, punctuation or sound alike errors 07/06/24 23:24 Counseled pt/family regarding: lab results, diagnosis, need for follow-up, rad results - Departure Departure Disposition: Home Clinical Impression: Diverticulitis, Abdominal pain Condition: Stable Critical Care Time: No Referrals: DOCTOR,NO FAMILY [Primary Care Provider] - Follow up/PCP as directed SANTOS HAWK MD [ACTIVE STAFF] - Follow up/PCP as directed Additional Instructions: Clear liquid diet until symptoms resolve or advised otherwise by your primary care doctor. Follow-up with your primary care doctor within 48 hours for reevaluation. Discharge/Care Plan JAMIE HOWELL was seen on 07/06/24 in the Emergency Room. The patient was counseled regarding Diagnosis,Lab results, Imaging studies, need for follow up and when to return to the Emergency Room. Prescriptions given: Discharge Note I have spoken with the patient and/or caregivers. I have explained the patient's condition, diagnosis and treatment plan based on the information available to me at this time. I have answered the patient's and/or caregiver's questions and addressed any concerns. The patient and/or caregivers have as good understanding of the patient's diagnosis, condition and treatment plan as can be expected at t his point. The vital signs have been stable. The patient's condition is stable and appropriate for discharge from the emergency department. The patient will pursue further outpatient evaluation with the primary care physician or other designated or consulting physician as outlined in the discharge instructions. The patient and/or caregivers are agreeable to this plan of care and follow-up instructions have been explained in detail. The patient and/or caregivers have received these instruction. The patient/and or caregivers are aware that any significant change in condition or worsening of symptoms should prompt an immediate return to this or the closest emergency department or call 911. Prescriptions: Hydrocodone/APAP 5/325 [Baskin 5/325 mg] 1 each PO Q6H PRN PRN #10 tablet MDD 4 PRN Reason: Pain Metronidazole 500 mg [Flagyl 500 MG] 500 mg PO TID 7 Days #21 tablet levoFLOXacin [Levofloxacin] 500 mg PO DAILY 7 Days #7 tablet
[2024-07-06] MEDS ORDERED: TORAdol 30 mg Injection ONE (21:39)
[2024-07-06] MEDS ORDERED: Sodium Chloride 0.9% 1000 ML 1,000 ML ONE (21:39)
[2024-07-06] MEDS: TORAdol 30 mg Injection IV ONE (21:40)
[2024-07-06] MEDS: Sodium Chloride 0.9% 1000 ML 1,000 ML IV SCH (21:42)
[2024-07-06 21:47] LABS: Absolute Neutrophil Ct (ANC) 6.16 x10^3/uL (1.56-6.13); BASOPHIL % 0.3 % (0.1-1.2); Basophil (Absolute #) 0.03 x10^3/uL (0.01-0.08); Eosinophil % 2.5 % (0.7-5.8); Eosinophil (Absolute #) 0.22 x10^3/uL (0.04-0.36); IMMATURE GRAN # 0.03 x10^3u/L (0.001-0.031); IMMATURE GRAN % 0.3 % (0.001-0.429); Lymphocyte (Absolute #) 1.82 x10^3/uL (1.18-3.74); Lymphocytes % 20.4 % (19.3-51.7); Mean Cell Volume 91.1 fL (79.4-94.8); Mean Corpuscular Hemoglobin 30.4 pg (25.6-32.2); Mean Corpuscular Hgb Concent. 33.3 g/dL (32.2-35.5); Mean Platelet Volume 8.9 fL (9.4-12.3); Monocyte (Absolute #) 0.66 x10^3/uL (0.24-0.86); Monocytes % 7.4 % (4.7-12.5); Neutrophil % 69.1 % (34.0-71.1); Platelet Count 285 x10^3/uL (182-369); Red Blood Count 4.61 x10^6/uL (3.93-5.22); White Blood Count 8.9 x10^3/uL (3.98-10.04)
[2024-07-06 22:06] LABS: ALBUMIN 4.1 g/dL (3.5-5.0); ANION GAP 13.5 MEQ/L (5-15); BILIRUBIN,TOTAL 0.5 mg/dL (0.2-1.3); Calcium 9.4 mg/dL (8.4-10.2); Creatinine 1 1.02 mg/dL (0.52-1.04); EST GLOMERULAR FILTRATION RATE 62.2 ML/MIN; Potassium 4.5 mmol/L (3.5-5.1); Total Protein 6.6 g/dL (6.3-8.2)
[2024-07-06] MEDS ORDERED: Zofran 4 MG/2 ML VIAL ONE (22:56)
[2024-07-06] MEDS ORDERED: MORPHINE SULFATE 2 MG INJ ONE (22:57)
[2024-07-06] MEDS ORDERED: FLAGYL 500 MG IVPB 500 MG/100 ML BAG IV ONE (22:57)
[2024-07-06] MEDS: Zofran 4 MG/2 ML VIAL IV ONE (23:02)
[2024-07-06] MEDS: MORPHINE SULFATE 2 MG INJ IV ONE (23:03)
[2024-07-06] MEDS: FLAGYL 500 MG IVPB 500 MG/100 ML BAG IV STA (23:05)
[2024-07-06 23:26] VITALS: RESP 19
[2024-07-06] MEDS ORDERED: Levofloxacin 500MG/100ML D5W 500 MG/100 ML BAG IV ONE (23:39)
[2024-07-06] MEDS: Levofloxacin 500MG/100ML D5W 500 MG/100 ML BAG IV STA (23:40)
[2024-07-07 00:04] VITALS: O2SAT 95
[2024-07-07 00:38] VITALS: BP 138/61; PULSE 57
--- NOTE | 2024-07-07 08:43 | XRAY ---
Indication: Pain. Multiple contiguous axial images obtained through the abdomen and pelvis without contrast. Comparison: June 15, 2023 Lung bases clear with incidental tiny left base calcified granuloma. Heart remains borderline enlarged. Noncontrasted stomach and bowel loops appear nonobstructed. There is now moderate diffuse scattered colonic fecal debris throughout. Again scattered sigmoid diverticulosis with new mild diverticulitis. Stable small right upper renal cyst, appendectomy, cholecystectomy, and hysterectomy. No free fluid/air. Remaining liver, pancreas, spleen, adrenal glands, kidneys, ureters, and bladder are unremarkable for noncontrast exam. There remains moderate scattered aortoiliac calcifications with 2.8 cm distal AAA and biiliac stents. Lack of IV contrast precludes further characterization. Osseous structures intact again with osteopenia, mild/moderate multilevel thoracolumbar degenerative spondylosis, and L2-L5 posterior fusion hardware. Impression: 1. Again sigmoid diverticulosis with new mild noncomplicated diverticulitis. 2. New moderate diffuse fecal stasis. 3. Chronic findings including borderline cardiomegaly, right renal cyst, arteriosclerotic disease, chronic bony findings, and old granulomatous disease.
== END 2024-07-07 00:50 | disposition home or self-care (01) ==
LOC: ED 19:43
DX: K57.92 Diverticulitis of intestine, part unspecified, without perforation or abscess without bleeding (principal); R10.30 Lower abdominal pain, unspecified; E78.5 Hyperlipidemia, unspecified; I10 Essential (primary) hypertension; Z79.02 Long term (current) use of antithrombotics/antiplatelets; Z79.899 Other long term (current) drug therapy; Z72.0 Tobacco use
CPT/HCPCS: 36415; 74176; 80053; 81001; 83690; 84484; 85025; 96361; 96365; 96367; 96374; 96375; 99284; 99285; J1885; J1956; J2270; J2405

== ENCOUNTER 2024-07-15 17:16 | Observation (INO) | payer MEDICARE ==
--- NOTE | 2024-07-15 17:46 | ERPHSYRPT ---
- History of Present Illness Time Seen by Provider: 07/15/24 17:46 Historian: patient, family Exam Limitations: no limitations Physician History: This is a 64-year-old white female patient who was seen in our emergency department on 07/06/2024 and diagnosed with sigmoid diverticulitis. She was given a prescription for outpatient Levaquin, Flagyl and [place] 5/325 pain me dication. In the last 9 days, the patient states her symptoms have not improved. Today her left lower quadrant abdominal pain worsened. She was seen at [facility] where they performed a repeat CT scan of the abdomen pelvis without contrast. This study today was compared to the noncontrast CT scan of the abdomen pelvis that was performed here at our facility on 07/06/2024. I reviewed that clinical impression interpreted by the radiologist. The interpretation states continued acute sigmoid diverticulosis with surrounding fat stranding mildly worse since 07/06/2024. There is no extraluminal gas or noncontrast evidence for organized fluid collection seen. Patient has a history of peripheral vascular disease on Plavix, hyperlipidemia, hypertension, gastroesophageal reflux disease and coronary artery disease. She has no shortness of breath and she has no chest pain. Timing/Duration: today Quality: aching (Left lower quadrant) Abdominal Pain Onset Location: LLQ Pain Radiation: no radiation Severity of Pain-Max: moderate Severity of Pain-Current: moderate Modifying Factors: Improves With: nothing Associated Symptoms: loss of appetite, nausea, No chest pain, No shortness of breath Previous symptoms: same symptoms as today, recently seen, recently treated Allergies/Adverse Reactions: erythromycin base Allergy (Verified 07/15/24 17:42) Rash STATES SHE IS NOT ANYMORE Home Medications: Clopidogrel Bisulfate [PLAVIX 75 MG Tablet] 75 mg PO DAILY 11/23/14 [History] Rosuvastatin Calcium [Crestor] 10 mg PO DAILY 11/23/14 [History] Evolocumab [Repatha Syringe] 1 tab PO UD 07/10/19 [History] Isosorbide Mononitrate 30 mg [Imdur 30 MG] 1 tab PO DAILY 07/10/19 [History] Lisinopril 10 mg [Zestril 10 MG] 1 tab PO BID 07/10/19 [History] Propranolol HCl [Inderal LA] 80 tab PO DAILY 07/10/19 [History] Famotidine [Pepcid] 40 mg PO BID 09/01/22 [History] Hx Tetanus, Diphtheria Vaccination/Date Given: Yes Hx Influenza Vaccination/Date Given: No Hx Pneumococcal Vaccination/Date Given: No Travel Risk - International Travel Have you traveled outside of the country in past 3 weeks: No - Emerging Infectious Disease Are you exhibiting symptoms associated with any current EIDs: Yes Symptoms: Abdominal Pain - Review of Systems Constitutional: No Symptoms Eyes: No Symptoms Ears, Nose, & Throat: No Symptoms Respiratory: No Symptoms Cardiac: No Symptoms Abdominal/Gastrointestinal: Abdominal Pain (Lower quadrant), Nausea, Appetite Changes Genitourinary Symptoms: No Symptoms Musculoskeletal: No Symptoms Skin: No Symptoms Neurological: No Symptoms Psychological: No Symptoms Endocrine: No Symptoms Hematologic/Lymphatic: No Symptoms Immunological/Allergic: No Symptoms All Other Systems: Reviewed and Negative - Past Medical History Pertinent Past Medical History: Yes Neurological History: No Pertinent History ENT History: No Pertinent History Cardiac History: Angina, Coronary Artery Disease, High Cholesterol, Hypertension Respiratory History: No Pertinent History Endocrine Medical History: No Pertinent History Musculoskeletal History: No Pertinent History GI Medical History: No Pertinent History History: Other Psycho-Social History: No Pertinent History Female Reproductive Disorders: No Pertinent History, Fibroids Other Medical History: kidney infection - Past Surgical History Past Surgical History: Yes Neuro Surgical History: No Pertinent History Cardiac: Cardiac Catheterization, Cardiac Stent Respiratory: No Pertinent History Gastrointestinal: No Pertinent History Genitourinary: No Pertinent History Musculoskeletal: Orthopedic Surgery Female Surgical History: Hysterectomy Other Surgical History: states "rods in back,and bilateral rotator cuff surgery". hematoma removed from right hip. - Social History Smoking Status: Current every day smoker How long have you smoked: 20yrs Exposure to second hand smoke: Yes Drug Use: none - Social Determinants of Health Will the patient participate in the screening: Yes Do you worry about a steady place to live?: No In the past 12 months,have you had to go without utilities?: No Transportation Issues: No Has anyone in your support network made you feel unsafe?: No Have you or anyone in your house had to go w/o enough food: No - Nursing Vital Signs Nursing Vital Signs: Initial Vital Signs Pulse Rate 64 07/15/24 17:43 Respiratory Rate 16 07/15/24 17:43 Blood Pressure 173/95 07/15/24 17:43 O2 Sat by Pulse Oximetry 97 07/15/24 17:43 Pain Scale Pain Intensity 5 - Physical Exam General Appearance: no apparent distress, alert, anxiety, thin Eye Exam: PERRL/EOMI, eyes nml inspection Ears, Nose, Throat Exam: normal ENT inspection, moist mucous membranes Neck Exam: normal inspection, non-tender, supple, full range of motion Respiratory Exam: normal breath sounds, lungs clear, respiratory distress, airway intact, No chest tenderness Cardiovascular Exam: regular rate/rhythm, normal heart sounds, normal peripheral pulses Gastrointestinal/Abdomen Exam: soft, normal bowel sounds, tenderness (Left lower quadrant to palpation), guarding Pelvic Exam: not done Rectal Exam: not done Back Exam: normal inspection, normal range of motion, No CVA tenderness, No vertebral tenderness Extremity Exam: normal inspection, normal range of motion, pelvis stable Neurologic Exam: alert, oriented x 3, cooperative, nurses' aide II-XII nml as tested, normal mood/affect, nml cerebellar function, nml station & gait, sensation nml Skin Exam: normal color, warm, dry Lymphatic Exam: No adenopathy SpO2 Interpretation: normal SpO2: 96 O2 Delivery: Room Air - Course Nursing assessment & vital signs reviewed: Yes Ordered Tests: Active Orders 24 hr Category Date Time Status IV Insertion STAT Care 07/15/24 18:18 Active AMYLASE Stat Lab 07/15/24 18:59 Completed BLOOD CULTURE Stat Lab 07/15/24 18:56 Received CBC W DIFF Stat Lab 07/15/24 18:59 Completed CMP Stat Lab 07/15/24 18:59 Completed LIPASE Stat Lab 07/15/24 18:59 Completed Lactic Acid Stat Lab 07/15/24 18:18 Completed UA W/RFX UR CULTURE Stat Lab 07/15/24 18:20 Received Medication Summary Discontinued Medications Generic Name Dose Route Start Last Admin Trade Name Freq PRN Reason Stop Dose Admin Hydromorphone HCl 1 mg 07/15/24 18:18 07/15/24 18:28 Hydromorphone 1 Mg/1ml Inj IV 07/15/24 18:19 1 mg STAT ONE Administration Hydromorphone HCl Confirm 07/15/24 18:23 Hydromorphone 1 Mg/1ml Inj Administered 07/15/24 18:24 Dose 1 mg .ROUTE .STK-MED ONE Sodium Chloride 1,000 mls @ 999 mls/hr 07/15/24 18:18 07/15/24 18:28 Sodium Chloride 0.9% 1000 Ml IV 07/15/24 19:18 999 mls/hr .Q1H1M STA Administration Sodium Chloride Confirm 07/15/24 18:23 Sodium Chloride 0.9% 1000 Ml Administered 07/15/24 18:24 Dose 1,000 mls @ ud .ROUTE .STK-MED ONE Piperacillin Sod/Tazobactam 100 mls @ 200 mls/hr 07/15/24 18:50 07/15/24 19:04 Sod 3.375 gm/ Sodium Chloride IV 07/15/24 19:19 200 ml/hr STAT ONE 200 mls/hr Administration Sodium Chloride Confirm 07/15/24 18:57 Sodium Chloride 100ml Mini-Bag Plus Administered 07/15/24 18:58 Dose 100 mls @ ud IV .STK-MED ONE Ondansetron HCl 4 mg 07/15/24 18:18 07/15/24 18:29 Ondansetron Hcl 4 Mg/2 Ml Vial IV 07/15/24 18:19 4 mg STAT ONE Administration Ondansetron HCl Confirm 07/15/24 18:23 Ondansetron Hcl 4 Mg/2 Ml Vial Administered 07/15/24 18:24 Dose 4 mg .ROUTE .STK-MED ONE Piperacillin Sod/Tazobactam Sod Confirm 07/15/24 18:56 Piperacillin/Tazobactam Sodium 3.375 Gm Vial Administered 07/15/24 18:57 Dose 3.375 gm IV .STK-MED ONE Lab/Rad Data: Laboratory Result Diagrams 07/15/24 18:59 07/15/24 18:59 Laboratory Results 07/15/24 07/15/24 07/15/24 Range/Units 18:59 18:59 18:18 WBC 8.0 (3.98-10.04) x10^3/uL RBC 4.03 (3.93-5.22) x10^6/uL Hgb 12.1 (11.2-15.7) g/dL Hct 36.7 (34.1-44.9) % MCV 91.1 (79.4-94.8) fL MCH 30.0 (25.6-32.2) pg MCHC 33.0 (32.2-35.5) g/dL RDW 12.8 (11.7-14.4) % Plt Count 264 (182-369) x10^3/uL MPV 9.0 L (9.4-12.3) fL Gran % 78.9 H (34.0-71.1) % Immature Gran % (Auto) 0.4 (0.001-0.429) % Nucleat RBC Rel Count 0.0 (0.00-0.2) % Eos # (Auto) 0.17 (0.04-0.36) x10^3/uL Immature Gran # (Auto) 0.03 (0.001-0.031) x10^3u/L Absolute Lymphs (auto) 0.94 L (1.18-3.74) x10^3/uL Absolute Monos (auto) 0.51 (0.24-0.86) x10^3/uL Absolute Nucleated RBC 0.00 (0.00-0.012) x10^3u/L Lymphocytes % 11.8 L (19.3-51.7) % Monocytes % 6.4 (4.7-12.5) % Eosinophils % 2.1 (0.7-5.8) % Basophils % 0.4 (0.1-1.2) % Absolute Granulocytes 6.32 H (1.56-6.13) x10^3/uL Basophils # 0.03 (0.01-0.08) x10^3/uL Sodium 138 (135-145) mmol/L Potassium 4.1 (3.5-5.1) mmol/L Chloride 107 (98-107) mmol/L Carbon Dioxide 24 (22-30) mmol/L Anion Gap 11.6 (5-15) MEQ/L BUN 7 (7-17) mg/dL Creatinine 0.85 (0.52-1.04) mg/dL Estimated GFR 77.4 ML/MIN Glucose 103 (74-106) mg/dL Lactic Acid 0.8 (0.4-2.0) Calcium 8.4 (8.4-10.2) mg/dL Total Bilirubin 0.40 (0.2-1.3) mg/dL AST 20 (14-36) U/L ALT 16 (0-35) U/L Alkaline Phosphatase 60 (38-126) U/L Serum Total Protein 6.1 L (6.3-8.2) g/dL Albumin 3.6 (3.5-5.0) g/dL Amylase 35 (30-110) U/L Lipase 34 (23-300) U/L - Progress Progress: improved, pain not gone completely Progress Note: 07/15/24 18:48 My medical decision making of the assignment of moderate to high complexity of this patient's medical issue today is based on review of the patient's past medical history, review the patient's medication list, reviewed patient drug allergy list, history present illness and physical findings on examination. The workup in this patient includes placement of intravenous line, CBC, CMP, urin alysis, amylase and lipase levels. There is no need to repeat the CT scan of the ab pelvis that was performed earlier today. This patient differential diagnosis includes sigmoid diverticulitis, with /without abscess or free air. The CT scan of the abdomen pelvis without contrast radiologist interpretation performed today, 07/15/2024, was reviewed by me. The radiologist's impression is that there is slightly worsened sigmoid diverticulitis without abscess or free air. Patient has failed outpatient therapy. We will place her in observation. I will contact the telehospitalist. 07/15/24 19:56 I interpreted the patient's laboratory data results. Based on the laboratory data results there are no acute, emergent medical issue. The urinalysis is pending. However, the antibiotics we have started on her will cover urinary tract infection. I spoke with Dr. Carrera, our telehospitalist on-call at this time. I reviewed the patient history, presenting complaint, physical findings on examination, workup results. We will place this patient in observation and keep her n.p.o., provider intravenous fluids, antiemetic and pain medication. We will continue Zosyn 3.375 intravenously. Counseled pt/family regarding: lab results, diagnosis, rad results Medical Desision Making - Independent Historian Additional History obtained from: Family - Diagnostic Testing Diagnostic test were ordered, analyzed, and reviewed by me: Yes Radiological Interpretation: Reviewed by me, Teleradiologist Report - Risk of complications The pt has a high risk of morbidity or mortality based on: Decision regarding hospitilization or escalation of hosp level of care - Departure Departure Disposition: Observation Clinical Impression: Sigmoid diverticulitis Condition: Stable Critical Care Time: No Referrals: DOCTOR,NO FAMILY [NON-STAFF PHY W/O PRIVILEGES] - Follow up/PCP as directed
[2024-07-15] MEDS ORDERED: Hydromorphone 1 mg/ml Injection ONE (18:23)
[2024-07-15] MEDS ORDERED: Zofran 4 MG/2 ML VIAL ONE (18:23)
[2024-07-15] MEDS ORDERED: Sodium Chloride 0.9% 1000 ML 1,000 ML ONE (18:23)
[2024-07-15] MEDS: Hydromorphone 1 mg/ml Injection IV ONE (18:28)
[2024-07-15] MEDS: Sodium Chloride 0.9% 1000 ML 1,000 ML IV STA (18:28)
[2024-07-15] MEDS: Zofran 4 MG/2 ML VIAL IV ONE (18:29)
[2024-07-15] MEDS ORDERED: PIPERACILLIN/TAZOBACTAM IV ONE ×2 (18:56→22:14)
[2024-07-15] MEDS ORDERED: Sodium Chloride 100ML MINI-BAG PLUS 100 ML IV ONE ×2 (18:57→22:15)
[2024-07-15 19:01] LABS: Absolute Neutrophil Ct (ANC) 6.32 x10^3/uL (1.56-6.13); BASOPHIL % 0.4 % (0.1-1.2); Basophil (Absolute #) 0.03 x10^3/uL (0.01-0.08); Eosinophil % 2.1 % (0.7-5.8); Eosinophil (Absolute #) 0.17 x10^3/uL (0.04-0.36); Hematocrit 36.7 % (34.1-44.9); Hemoglobin 12.1 g/dL (11.2-15.7); IMMATURE GRAN # 0.03 x10^3u/L (0.001-0.031); IMMATURE GRAN % 0.4 % (0.001-0.429); Lymphocyte (Absolute #) 0.94 x10^3/uL (1.18-3.74); Lymphocytes % 11.8 % (19.3-51.7); Mean Cell Volume 91.1 fL (79.4-94.8); Monocyte (Absolute #) 0.51 x10^3/uL (0.24-0.86); Monocytes % 6.4 % (4.7-12.5); Neutrophil % 78.9 % (34.0-71.1); Platelet Count 264 x10^3/uL (182-369); Red Blood Count 4.03 x10^6/uL (3.93-5.22); Red Cell Distribution Width 12.8 % (11.7-14.4)
[2024-07-15] MEDS: PIPERACILLIN/TAZOBACTAM 3.375 GM in Sodium Chloride 100ML MINI-BAG PLUS 100 ML IV ONE (19:04)
[2024-07-15 19:18] LABS: ALBUMIN 3.6 g/dL (3.5-5.0); ANION GAP 11.6 MEQ/L (5-15); BILIRUBIN,TOTAL 0.4 mg/dL (0.2-1.3); Calcium 8.4 mg/dL (8.4-10.2); Creatinine 1 0.85 mg/dL (0.52-1.04); EST GLOMERULAR FILTRATION RATE 77.4 ML/MIN; Potassium 4.1 mmol/L (3.5-5.1); Total Protein 6.1 g/dL (6.3-8.2)
[2024-07-15 19:45] LABS: Appearance Clear (Clear); Bacteria None Seen /HPF (None Seen); Bilirubin Negative (Negative); Blood Negative (Negative); Epithelial Cells Rare /HPF (None Seen); Glucose, Urine Negative (Negative); Hyaline Casts NONE SEEN /LPF (0-2); Ketones Negative (Negative); Leukocyte Esterase Negative (Negative); Nitrite Negative (Negative); Ph 5.5 (4.6-8.0); Protein,Urine Dip Negative (Negative); RBC 0-2 /HPF (0-5); Urobilinogen 0.2 mg/dL (0.2); WBC 0-2 /HPF (0-5)
[2024-07-15] MEDS ORDERED: Zofran 4 MG/2 ML VIAL IV PRN (20:49)
[2024-07-15] MEDS ORDERED: TYLENOL 325 MG PO PRN (20:49)
[2024-07-15] MEDS ORDERED: NON-FORMULARY ITEM (Famotidine [Pepcid] 40 MG Tablet) PO PRN (21:18)
[2024-07-15] MEDS ORDERED: Cyclobenzaprine 10 MG PO PRN (21:18)
--- NOTE | 2024-07-15 21:28 | PCM.HP ---
History of Present Illness - Chief Complaint Chief Complaint: abdominal pain Date: 07/15/24 History of Present Illness: 64-year-old woman with history of hypertension, CAD, PAD, GERD, and tobacco use, who presents with recurrent abdominal pain. Patient initially presented on 07/06 to the [place] ED with left lower quadrant abdominal pain, and was diagnosed with sigmoid diverticulitis. Patient declined admission at that time, and went home on Levaquin and Flagyl, with her home PRN [place]. Symptoms were initially improving, but 2 days prior to admission began to have worsening left lower quadrant pain again. She describes the pain as constant, stabbing, initially m ild but worsening to severe, left lower quadrant abdominal pain, unchanged with eating or bowel movement. No associated nausea, diarrhea, or constipation. (She did have nausea associated with taking Flagyl, relieved by home Phenergan.) She has been eating her regular food, but notes that the pain might have worsened after some chicken soup. She has been having regular bowel movements, but noted increased frequency of bowel movements yesterday, up to 4 times in 1 day, when she only goes once every other day or so. Saw her PCP for follow-up yesterday, scheduled to repeat CT scan that was done earlier today at [facility]. I do not have that report available, but per ED physician, the report showed persistent sigmoid diverticulosis with some mildly worse stranding consistent with persistent diverticulitis, with no evidence of perforation or abscess. She was sent to the ED for continued IV antibiotics. Currently, pain is well-controlled after getting Dilaudid in the ED. - Review of Systems All Other Systems: Reviewed and Negative (Except as per HPI) Medications & Allergies Home Medications: Home Medication List Clopidogrel Bisulfate [PLAVIX 75 MG Tablet] 75 mg PO DAILY 11/23/14 [History Confirmed 07/15/24] Rosuvastatin Calcium [Crestor] 10 mg PO DAILY 11/23/14 [History Confirmed 07/15/24] Evolocumab [Repatha Syringe] 1 tab PO UD 07/10/19 [History Confirmed 07/15/24] Isosorbide Mononitrate 30 mg [Imdur 30 MG] 1 tab PO DAILY 07/10/19 [History Confirmed 07/15/24] Lisinopril 10 mg [Zestril 10 MG] 1 tab PO BID 07/10/19 [History Confirmed 07/15/24] Propranolol HCl [Inderal LA] 80 tab PO DAILY 07/10/19 [History Confirmed 07/15/24] Famotidine [Pepcid] 40 mg PO BID 09/01/22 [History Confirmed 07/15/24] Hydrocodone/APAP 5/325 [[place] 5/325 mg] 1 each PO Q6H PRN PRN #10 tablet MDD 4 07/06/24 [Rx Confirmed 07/15/24] Metronidazole 500 mg [Flagyl 500 MG] 500 mg PO TID 7 Days #21 tablet 07/06/24 [Rx Confirmed 07/15/24] Cyclobenzaprine HCl 10 mg [Cyclobenzaprine 10 MG] 10 mg PO TID PRN 07/15/24 [History Confirmed 07/15/24] Allergies/Adverse Reactions: Allergies Allergy/AdvReac Type Severity Reaction Status Date / Time erythromycin base Allergy Rash Verified 07/15/24 17:42 - Past Medical History Past Medical History: Yes Neurological History: No Pertinent History ENT History: No Pertinent History Cardiac History: Angina, Coronary Artery Disease, High Cholesterol, Hypertension Respiratory History: No Pertinent History Endocrine Medical History: No Pertinent History Musculoskelatal History: No Pertinent History GI Medical History: No Pertinent History History: Other Pyscho-Social History: No Pertinent History Reproductive Disorders: No Pertinent History, Fibroids Comment: kidney infection - Past Surgical History Past Surgical History: Yes Neuro Surgical History: No Pertinent History Cardiac History: Cardiac Catheterization, Cardiac Stent Respiratory Surgery: No Pertinent History GI Surgical History: No Pertinent History, Appendectomy, Cholecystectomy Genitourinary Surgical Hx: No Pertinent History Musculskeletal Surgical Hx: Orthopedic Surgery Female Surgical History: Hysterectomy Other Surgical History: states "rods in back,and bilateral rotator cuff surgery". hematoma removed from right hip. Significant Family History: kidney/renal disease (Mother with ESRD) - Social History Smoking Status: Current every day smoker (1/2 pack per day) How long have you smoked: 20yrs Exposure to second hand smoke: Yes Alcohol: None Drug Use: none - Social Determinants of Health Will the patient participate in the screening: Yes Do you worry about a steady place to live?: No Do you have any problems with any of the following?: No known problems In the past 12 months,have you had to go without utilities?: No Have you or anyone in your house had to go without enough: No Transportation Issues: No Has anyone in your support network made you feel unsafe?: No - Physical Exam Vital Signs: Vital Signs - 24 hr Temp Pulse Resp BP BP Pulse Ox 07/15/24 20:02 96 07/15/24 20:00 139/63 96 07/15/24 19:30 145/59 99 07/15/24 19:01 70 19 132/63 92 L 07/15/24 18:32 68 18 182/106 92 L 07/15/24 18:01 94 H 18 145/85 93 L 07/15/24 17:44 97.4 F 54 L 16 173/95 96 07/15/24 17:43 64 16 173/95 97 Physical Exam GEN: Sitting up in bed in no acute distress. HENT: Normocephalic, atraumatic. Moist mucous membranes. EYES: Normal inspection, anicteric sclera, extraocular movements intact. NECK: Supple, full range of motion CV: Regular rate and rhythm, no murmurs, no gallops. No JVD or edema. PULM: Clear to auscultation bilaterally, no work of breathing. On room air. ABD: Nondistended, mildly tender in the left lower quadrant, without guarding or rebound. Normoactive bowel sounds. MSK: No joint effusions, full range of motion SKIN: No rashes, normal color. NEURO: Face symmetric, no focal motor or sensory deficits. PSYCH: Alert, oriented x 3 Results - Labs Lab/Micro Results: Lab Results-Last 24 Hours 07/15/24 07/15/24 07/15/24 Range/Units 18:18 18:20 18:59 WBC 8.0 (3.98-10.04) x10^3/uL RBC 4.03 (3.93-5.22) x10^6/uL Hgb 12.1 (11.2-15.7) g/dL Hct 36.7 (34.1-44.9) % MCV 91.1 (79.4-94.8) fL MCH 30.0 (25.6-32.2) pg MCHC 33.0 (32.2-35.5) g/dL RDW 12.8 (11.7-14.4) % Plt Count 264 (182-369) x10^3/uL MPV 9.0 L (9.4-12.3) fL Gran % 78.9 H (34.0-71.1) % Immature Gran % (Auto) 0.4 (0.001-0.429) % Nucleat RBC Rel Count 0.0 (0.00-0.2) % Eos # (Auto) 0.17 (0.04-0.36) x10^3/uL Immature Gran # (Auto) 0.03 (0.001-0.031) x10^3u/L Absolute Lymphs (auto) 0.94 L (1.18-3.74) x10^3/uL Absolute Monos (auto) 0.51 (0.24-0.86) x10^3/uL Absolute Nucleated RBC 0.00 (0.00-0.012) x10^3u/L Lymphocytes % 11.8 L (19.3-51.7) % Monocytes % 6.4 (4.7-12.5) % Eosinophils % 2.1 (0.7-5.8) % Basophils % 0.4 (0.1-1.2) % Absolute Granulocytes 6.32 H (1.56-6.13) x10^3/uL Basophils # 0.03 (0.01-0.08) x10^3/uL Sodium (135-145) mmol/L Potassium (3.5-5.1) mmol/L Chloride (98-107) mmol/L Carbon Dioxide (22-30) mmol/L Anion Gap (5-15) MEQ/L BUN (7-17) mg/dL Creatinine (0.52-1.04) mg/dL Estimated GFR ML/MIN Glucose (74-106) mg/dL Lactic Acid 0.8 (0.4-2.0) Calcium (8.4-10.2) mg/dL Total Bilirubin (0.2-1.3) mg/dL AST (14-36) U/L ALT (0-35) U/L Alkaline Phosphatase (38-126) U/L Serum Total Protein (6.3-8.2) g/dL Albumin (3.5-5.0) g/dL Amylase (30-110) U/L Lipase (23-300) U/L Urine Color Yellow (Yellow) Urine Appearance Clear (Clear) Urine pH 5.5 (4.6-8.0) Ur Specific [place] 1.010 (1.005-1.030) Urine Protein Negative (Negative) Urine Glucose (UA) Negative (Negative) mg/dL Urine Ketones Negative (Negative) Urine Blood Negative (Negative) Urine Nitrite Negative (Negative) Urine Bilirubin Negative (Negative) Urine Urobilinogen 0.2 (0.2) mg/dL Ur Leukocyte Esterase Negative (Negative) U Hyaline Cast (Auto) NONE SEEN (0-2) /LPF Urine Microscopic RBC 0-2 (0-5) /HPF Urine Microscopic WBC 0-2 (0-5) /HPF Ur Epithelial Cells Rare (None Seen) /HPF Urine Bacteria None Seen (None Seen) /HPF Urine Culture Reflexed NO (NO) 07/15/24 Range/Units 18:59 WBC (3.98-10.04) x10^3/uL RBC (3.93-5.22) x10^6/uL Hgb (11.2-15.7) g/dL Hct (34.1-44.9) % MCV (79.4-94.8) fL MCH (25.6-32.2) pg MCHC (32.2-35.5) g/dL RDW (11.7-14.4) % Plt Count (182-369) x10^3/uL MPV (9.4-12.3) fL Gran % (34.0-71.1) % Immature Gran % (Auto) (0.001-0.429) % Nucleat RBC Rel Count (0.00-0.2) % Eos # (Auto) (0.04-0.36) x10^3/uL Immature Gran # (Auto) (0.001-0.031) x10^3u/L Absolute Lymphs (auto) (1.18-3.74) x10^3/uL Absolute Monos (auto) (0.24-0.86) x10^3/uL Absolute Nucleated RBC (0.00-0.012) x10^3u/L Lymphocytes % (19.3-51.7) % Monocytes % (4.7-12.5) % Eosinophils % (0.7-5.8) % Basophils % (0.1-1.2) % Absolute Granulocytes (1.56-6.13) x10^3/uL Basophils # (0.01-0.08) x10^3/uL Sodium 138 (135-145) mmol/L Potassium 4.1 (3.5-5.1) mmol/L Chloride 107 (98-107) mmol/L Carbon Dioxide 24 (22-30) mmol/L Anion Gap 11.6 (5-15) MEQ/L BUN 7 (7-17) mg/dL Creatinine 0.85 (0.52-1.04) mg/dL Estimated GFR 77.4 ML/MIN Glucose 103 (74-106) mg/dL Lactic Acid (0.4-2.0) Calcium 8.4 (8.4-10.2) mg/dL Total Bilirubin 0.40 (0.2-1.3) mg/dL AST 20 (14-36) U/L ALT 16 (0-35) U/L Alkaline Phosphatase 60 (38-126) U/L Serum Total Protein 6.1 L (6.3-8.2) g/dL Albumin 3.6 (3.5-5.0) g/dL Amylase 35 (30-110) U/L Lipase 34 (23-300) U/L Urine Color (Yellow) Urine Appearance (Clear) Urine pH (4.6-8.0) Ur Specific [place] (1.005-1.030) Urine Protein (Negative) Urine Glucose (UA) (Negative) mg/dL Urine Ketones (Negative) Urine Blood (Negative) Urine Nitrite (Negative) Urine Bilirubin (Negative) Urine Urobilinogen (0.2) mg/dL Ur Leukocyte Esterase (Negative) U Hyaline Cast (Auto) (0-2) /LPF Urine Microscopic RBC (0-5) /HPF Urine Microscopic WBC (0-5) /HPF Ur Epithelial Cells (None Seen) /HPF Urine Bacteria (None Seen) /HPF Urine Culture Reflexed (NO) Assessment/Plan (1) Sigmoid diverticulitis Current Visit: Yes Status: Acute Assessment & Plan: 64-year-old woman with history of HTN, CAD, PAD, GERD, and tobacco use, who presents with persistent sigmoid diverticulitis. ## Sigmoid diverticulitis persistent to slightly worsened after 9 days. No evidence of perforation or abscess. Patient has failed outpatient therapy. Possibly due to ineffective antibiotics. However, I suspect lack of bowel rest also contributes to this. DC Flagyl and Levaquin, and start Zosyn IV N.p.o. except for medications PRN Dilaudid 0.5 mg IV q.4 hours PRN Zofran Can slowly advance diet as tolerated as pain improves, starting with clear liquids ## Nicotine use, cigarettes smokes 1/2 to 2/3 pack/day. Counseled on cessation Start nicotine 21 mg patch ## Hypertension blood pressure initially elevated in the setting of uncontrolled pain. However, once pain controlled, BP normalized. Continue home lisinopril 10 mg BID, propranolol 80 mg daily ## CAD, PAD, dyslipidemia no current anginal pain Continue Plavix 75 mg, propranolol 80 mg daily, Imdur 30 mg daily, and Crestor 10 mg daily ## GERD Continue home PRN famotidine CODE STATUS: Full code Prophylaxis: Low risk (Cecilia score 1), encourage ambulation Diet: N.p.o. except medications Dispo: Place in observation, expect eventual discharge to home Entirety of encounter took place via live audio/video telemedicine device, with remote physician and patient in hospital, with the assistance of bedside nurse. Code(s): K57.32 - DVTRCLI OF LG INT W/O PERFORATION OR ABSCESS W/O BLEEDING Telemedicine Encounter - Telemedicine Encounter Telemedicine Encounter: "The entirety of this encounter was performed via Telemedicine" This visit was performed using real-time audio and video connection between my location and thepatients locationwith the assistance of a surrogateat the patients location. Written or verbal consent was obtained from the patient/guardian to perform this visit usingsynchrThe Daily Musetelemedicine technology. Any patient questions regarding the telemedicine interaction were answered.
[2024-07-15] MEDS: Hydromorphone 1 mg/ml Injection IV PRN (22:23)
[2024-07-15] MEDS: Sodium Chloride 0.9% 1000 ML 1,000 ML IV SCH (22:25)
[2024-07-15] MEDS: Nicoderm CQ 21 MG TOP SCH (22:26)
[2024-07-16] MEDS: PIPERACILLIN/TAZOBACTAM 3.375 GM in Sodium Chloride 100ML MINI-BAG PLUS 100 ML IV SCH
--- NOTE | 2024-07-16 05:15 | PCM.NOTE ---
Date and Time: 07/16/24 1466 Subjective Assessment: Ms. Cano is a 64-year-old female with a pmhx of HTN, CAD, PAD, GERD, and tobacco use who presented 07/15/24 with recurrent LLQ pain due to persistent sigmoid diverticulitis, worsening despite nine days of outpatient Levaquin and Flagyl. A repeat CT confirms inflammation without perforation or abscess. Given treatment failure, she is admitted for IV Zosyn, bowel rest, and supportive care. Pain and nausea are managed with PRN medications, and diet will be advanced as tolerated. Her hypertension remains stable with home medications, and there are no acute cardiac or GERD concerns. She was counseled on smoking cessation and started on a nicotine patch. 07/16/24: Met with patient bedside. She reports persistent pain, rated 7/10, localized to the left lower quadrant. She denies experiencing nausea or vomiting. The patient had a bowel movement this morning, which provided some relief from the pain. She does not report any loose stools or hematochezia. The patient requests an adjustment to her pain management regimen, specifically more frequent dosing, to better control her discomfort. - Review of Systems Constitutional: No Symptoms Eyes: No Symptoms Ears, Nose, & Throat: No Symptoms Respiratory: No Symptoms Cardiac: No Symptoms Abdominal/Gastrointestinal: Abdominal Pain (LLQ) Genitourinary Symptoms: No Symptoms Musculoskeletal: No Symptoms Skin: No Symptoms Neurological: No Symptoms Psychological: No Symptoms Endocrine: No Symptoms Hematologic/Lymphatic: No Symptoms Immunological/Allergic: No Symptoms Objective Exam General Appearance: no apparent distress Neurologic Exam: alert, oriented x 3, cooperative Skin Exam: normal color Eye Exam: PERRL Neck Exam: normal inspection Respiratory Exam: normal breath sounds, lungs clear Cardiovascular Exam: regular rate/rhythm, normal heart sounds Gastrointestinal/Abdomen Exam: soft, normal bowel sounds, tenderness (LLQ) Extremity Exam: normal inspection, normal range of motion Back Exam: normal inspection, normal range of motion Objective Data Vital Signs: Vital Signs - 24 hr Temp Pulse Resp BP BP Pulse Ox 07/16/24 04:00 97.1 F 63 18 140/70 95 07/16/24 00:00 97.6 F 64 16 119/56 95 07/15/24 21:22 97.3 F 79 20 188/88 94 L 07/15/24 20:02 96 07/15/24 20:00 139/63 96 03/21/25 19:30 145/59 99 07/15/24 19:01 70 19 132/63 92 L 07/15/24 18:32 68 18 182/106 92 L 07/15/24 18:01 94 H 18 145/85 93 L 07/15/24 17:44 97.4 F 54 L 16 173/95 96 07/15/24 17:43 64 16 173/95 97 Pain Assessment - Last Documented Pain Intensity 6 Pain Scale Used 0-10 Pain Scale Intake and Output: Intake & Output 07/13/24 07/14/24 07/15/24 07/16/24 11:59 11:59 11:59 11:59 Intake Total 681 Output Total 900 Balance -219 Weight 69 kg Lab Results: Lab Results-Last 24 Hours 07/15/24 07/15/24 07/15/24 Range/Units 18:18 18:20 18:59 WBC 8.0 (3.98-10.04) x10^3/uL RBC 4.03 (3.93-5.22) x10^6/uL Hgb 12.1 (11.2-15.7) g/dL Hct 36.7 (34.1-44.9) % MCV 91.1 (79.4-94.8) fL MCH 30.0 (25.6-32.2) pg MCHC 33.0 (32.2-35.5) g/dL RDW 12.8 (11.7-14.4) % Plt Count 264 (182-369) x10^3/uL MPV 9.0 L (9.4-12.3) fL Gran % 78.9 H (34.0-71.1) % Immature Gran % (Auto) 0.4 (0.001-0.429) % Nucleat RBC Rel Count 0.0 (0.00-0.2) % Eos # (Auto) 0.17 (0.04-0.36) x10^3/uL Immature Gran # (Auto) 0.03 (0.001-0.031) x10^3u/L Absolute Lymphs (auto) 0.94 L (1.18-3.74) x10^3/uL Absolute Monos (auto) 0.51 (0.24-0.86) x10^3/uL Absolute Nucleated RBC 0.00 (0.00-0.012) x10^3u/L Lymphocytes % 11.8 L (19.3-51.7) % Monocytes % 6.4 (4.7-12.5) % Eosinophils % 2.1 (0.7-5.8) % Basophils % 0.4 (0.1-1.2) % Absolute Granulocytes 6.32 H (1.56-6.13) x10^3/uL Basophils # 0.03 (0.01-0.08) x10^3/uL Sodium (135-145) mmol/L Potassium (3.5-5.1) mmol/L Chloride (98-107) mmol/L Carbon Dioxide (22-30) mmol/L Anion Gap (5-15) MEQ/L BUN (7-17) mg/dL Creatinine (0.52-1.04) mg/dL Estimated GFR ML/MIN Glucose (74-106) mg/dL Lactic Acid 0.8 (0.4-2.0) Calcium (8.4-10.2) mg/dL Total Bilirubin (0.2-1.3) mg/dL AST (14-36) U/L ALT (0-35) U/L Alkaline Phosphatase (38-126) U/L Serum Total Protein (6.3-8.2) g/dL Albumin (3.5-5.0) g/dL Amylase (30-110) U/L Lipase (23-300) U/L Urine Color Yellow (Yellow) Urine Appearance Clear (Clear) Urine pH 5.5 (4.6-8.0) Ur Specific [place] 1.010 (1.005-1.030) Urine Protein Negative (Negative) Urine Glucose (UA) Negative (Negative) mg/dL Urine Ketones Negative (Negative) Urine Blood Negative (Negative) Urine Nitrite Negative (Negative) Urine Bilirubin Negative (Negative) Urine Urobilinogen 0.2 (0.2) mg/dL Ur Leukocyte Esterase Negative (Negative) U Hyaline Cast (Auto) NONE SEEN (0-2) /LPF Urine Microscopic RBC 0-2 (0-5) /HPF Urine Microscopic WBC 0-2 (0-5) /HPF Ur Epithelial Cells Rare (None Seen) /HPF Urine Bacteria None Seen (None Seen) /HPF Urine Culture Reflexed NO (NO) 07/15/24 Range/Units 18:59 WBC (3.98-10.04) x10^3/uL RBC (3.93-5.22) x10^6/uL Hgb (11.2-15.7) g/dL Hct (34.1-44.9) % MCV (79.4-94.8) fL MCH (25.6-32.2) pg MCHC (32.2-35.5) g/dL RDW (11.7-14.4) % Plt Count (182-369) x10^3/uL MPV (9.4-12.3) fL Gran % (34.0-71.1) % Immature Gran % (Auto) (0.001-0.429) % Nucleat RBC Rel Count (0.00-0.2) % Eos # (Auto) (0.04-0.36) x10^3/uL Immature Gran # (Auto) (0.001-0.031) x10^3u/L Absolute Lymphs (auto) (1.18-3.74) x10^3/uL Absolute Monos (auto) (0.24-0.86) x10^3/uL Absolute Nucleated RBC (0.00-0.012) x10^3u/L Lymphocytes % (19.3-51.7) % Monocytes % (4.7-12.5) % Eosinophils % (0.7-5.8) % Basophils % (0.1-1.2) % Absolute Granulocytes (1.56-6.13) x10^3/uL Basophils # (0.01-0.08) x10^3/uL Sodium 138 (135-145) mmol/L Potassium 4.1 (3.5-5.1) mmol/L Chloride 107 (98-107) mmol/L Carbon Dioxide 24 (22-30) mmol/L Anion Gap 11.6 (5-15) MEQ/L BUN 7 (7-17) mg/dL Creatinine 0.85 (0.52-1.04) mg/dL Estimated GFR 77.4 ML/MIN Glucose 103 (74-106) mg/dL Lactic Acid (0.4-2.0) Calcium 8.4 (8.4-10.2) mg/dL Total Bilirubin 0.40 (0.2-1.3) mg/dL AST 20 (14-36) U/L ALT 16 (0-35) U/L Alkaline Phosphatase 60 (38-126) U/L Serum Total Protein 6.1 L (6.3-8.2) g/dL Albumin 3.6 (3.5-5.0) g/dL Amylase 35 (30-110) U/L Lipase 34 (23-300) U/L Urine Color (Yellow) Urine Appearance (Clear) Urine pH (4.6-8.0) Ur Specific [place] (1.005-1.030) Urine Protein (Negative) Urine Glucose (UA) (Negative) mg/dL Urine Ketones (Negative) Urine Blood (Negative) Urine Nitrite (Negative) Urine Bilirubin (Negative) Urine Urobilinogen (0.2) mg/dL Ur Leukocyte Esterase (Negative) U Hyaline Cast (Auto) (0-2) /LPF Urine Microscopic RBC (0-5) /HPF Urine Microscopic WBC (0-5) /HPF Ur Epithelial Cells (None Seen) /HPF Urine Bacteria (None Seen) /HPF Urine Culture Reflexed (NO) Assessment/Plan (1) Sigmoid diverticulitis Current Visit: Yes Status: Acute Assessment & Plan: -CT from 07/06 reviewed recurrent sigmoid diverticulosis with a new mild flare of uncomplicated diverticulitis. Theres also moderate fecal stasis, likely from slowed bowel transit. Chronic findings remain unchanged, including mild heart enlargement, a right kidney cyst, signs of vascular disease, old bone changes, and remnants of prior granulomatous disease. Nothing suggests an acute complication -Records reviewed from [facility] of CT ab/pelvis that was perfomed 07/15/24 showing mild worsening of acute diverticulitis when compared to imaging on 07/06/24 -Discontinue Flagyl and Levaquin due to OP failure; continue IV Zosyn -Monitor electrolytes -CLD ADAT -Pain control/anti-emetics/IVF -increase frequency -CMP/CBC reviewed Code(s): K57.32 - DVTRCLI OF LG INT W/O PERFORATION OR ABSCESS W/O BLEEDING (2) Tobacco abuse Current Visit: Yes Status: Acute Assessment & Plan: -Advised cessation -nicotine patch Code(s): Z72.0 - TOBACCO USE (3) HTN (hypertension) Current Visit: Yes Status: Acute Assessment & Plan: -Stable continue home meds Code(s): I10 - ESSENTIAL (PRIMARY) HYPERTENSION (4) CAD (coronary artery disease) Current Visit: Yes Status: Acute Assessment & Plan: -continue home meds Code(s): I25.10 - ATHSCL HEART DISEASE OF [place] CORONARY ARTERY W/O ANG PCTRS (5) PAD (peripheral artery disease) Current Visit: Yes Status: Acute Assessment & Plan: -continue home meds Code(s): I73.9 - PERIPHERAL VASCULAR DISEASE, UNSPECIFIED (6) HLD (hyperlipidemia) Current Visit: Yes Status: Acute Assessment & Plan: -continue statin Code(s): E78.5 - HYPERLIPIDEMIA, UNSPECIFIED (7) GERD (gastroesophageal reflux disease) Current Visit: Yes Status: Acute Assessment & Plan: -Continue famotidine CODE STATUS: Full code Prophylaxis: SCD Diet: N.p.o. except medications Dispo: 1-2 days Code(s): K21.9 - GASTRO-ESOPHAGEAL REFLUX DISEASE WITHOUT ESOPHAGITIS
[2024-07-16 05:39] LABS: Hematocrit 35.3 % (34.1-44.9); Hemoglobin 11.3 g/dL (11.2-15.7); Mean Cell Volume 93.1 fL (79.4-94.8); Mean Corpuscular Hemoglobin 29.8 pg (25.6-32.2); Platelet Count 278 x10^3/uL (182-369); Red Blood Count 3.79 x10^6/uL (3.93-5.22); Red Cell Distribution Width 13.3 % (11.7-14.4); White Blood Count 8.1 x10^3/uL (3.98-10.04)
[2024-07-16 05:53] LABS: ANION GAP 10.6 MEQ/L (5-15); Calcium 8.2 mg/dL (8.4-10.2); Creatinine 1 0.88 mg/dL (0.52-1.04); EST GLOMERULAR FILTRATION RATE 74.3 ML/MIN
[2024-07-16] MEDS ORDERED: PIPERACILLIN/TAZOBACTAM IV ONE (05:57)
[2024-07-16] MEDS ORDERED: Sodium Chloride 100ML MINI-BAG PLUS 100 ML IV ONE (05:57)
[2024-07-16] MEDS ORDERED: Pepcid 20 MG PO PRN (07:07)
[2024-07-16] MEDS ORDERED: MEDICATION INTERVENTION MC SCH (07:15)
[2024-07-16] MEDS: Zestril 10 MG PO SCH (08:02)
[2024-07-16] MEDS: Imdur 30 MG PO SCH (09:26)
[2024-07-16] MEDS ORDERED: ZOCOR 20MG PO SCH (10:00)
[2024-07-16] MEDS ORDERED: PLAVIX Tablet PO SCH (10:00)
[2024-07-16] MEDS ORDERED: NON-FORMULARY ITEM (Rosuvastatin Calcium [Crestor] 10 MG Tablet) PO SCH (10:00)
[2024-07-16] MEDS: Ranexa 500 MG PO SCH (10:51)
[2024-07-16] MEDS: PATIENT OWN MEDICATION PO SCH (21:56)
[2024-07-16] MEDS: ZOCOR 20MG PO SCH (21:57)
[2024-07-16] MEDS: PLAVIX Tablet PO SCH (21:59)
[2024-07-17] MEDS ORDERED: NORCO 5/325 MG PO PRN (08:16)
[2024-07-17 08:55] VITALS: BP 184/79; PULSE 69; RESP 19; TEMP 97.3; O2SAT 93
--- NOTE | 2024-07-17 08:58 | PCM.DS ---
Discharge Summary Date of Admission: 07/15/24 20:47 Date of Discharge: 07/17/24 Admitting Physician: NADYA NATION MD Primary Care Provider: STEPHEN CONNOLLY Allergies Allergies erythromycin base Allergy (Verified 07/15/24 17:42) Rash STATES SHE IS NOT ANYMORE Hospital Summary - Hospital Course Hospital Course: Ms. Cano is a 64-year-old female with a pmhx of HTN, CAD, PAD, GERD, and tobacco use who presented 07/15/24 with recurrent LLQ pain due to persistent sigmoid diverticulitis, worsening despite nine days of outpatient Levaquin and Flagyl. A repeat CT confirms inflammation without perforation or abscess. Given treatment failure, she is admitted for IV Zosyn, bowel rest, and supportive care. Pain and nausea are managed with PRN medications, and diet advanced as tolerated. Her hypertension remains stable with home medications, and there are no acute cardiac or GERD concerns. She was counseled on smoking cessation and started on a nicotine patch. No nausea, vomiting or diarrhea. Patient is now able to tolerate a diet. Pain is controlled. Patient is requesting discharge. She reports she has pain medication at home. Will dismiss on Augmentin with PCP follow up. Patient agreeable to plan. Diet plan provided. Discharge Note New Diagnosis: Acute diverticulitis New Medications: Augmentin Follow Up: PCP I spent 35 minutes [id number] with the patient on the day of discharge performing discharge exam, discussing hospital stay and discharge instructions with patient and caregivers, preparation of discharge records, prescriptions & referral forms and addressing any questions/concerns the patient had as documented above. - Vitals & Intake/Output Vital Signs: Vital Signs Temperature 97.6 F 07/17/24 04:00 Pulse Rate 82 07/17/24 04:00 Respiratory Rate 20 07/17/24 04:00 Blood Pressure 179/83 07/17/24 04:00 O2 Sat by Pulse Oximetry 94 L 07/17/24 04:00 Intake & Output: Intake & Output 07/14/24 07/15/24 07/16/24 07/17/24 11:59 11:59 11:59 11:59 Intake Total 961 3786 Output Total 900 2900 Balance 61 886 Weight 69 kg - Lab Result Diagrams: 07/16/24 05:36 07/16/24 05:36 Micro Results-Entire Visit: Microbiology 07/15/24 18:56 Blood Culture - Preliminary Blood 07/15/24 18:52 Blood Culture - Preliminary Blood - Procedures and Test Procedures and Tests throughout Hospitalization: Therapy Orders & Screens 07/15/24 21:59 Smoking Cessation Education ONCE Comment: Diagnosis: abdominal pain Smoking Status: Current every day smoker How long have you smoked: 20yrs Have you smoked in the past 12 months: Yes Approximately how many cigarettes per day: 20 Do you dip or chew tobacco: No Discharge Exam General Appearance: no apparent distress Neurologic Exam: alert, oriented x 3, cooperative Eye Exam: PERRL Ears, Nose, Throat Exam: normal ENT inspection Neck Exam: normal inspection Respiratory Exam: normal breath sounds, lungs clear Cardiovascular Exam: regular rate/rhythm, normal heart sounds Gastrointestinal/Abdomen Exam: soft, normal bowel sounds Pelvic Exam: deferred Rectal Exam: deferred Back Exam: normal inspection Extremity Exam: normal inspection Skin Exam: normal color Final Diagnosis/Problem List - Final Discharge Diagnosis/Problem (1) Sigmoid diverticulitis Current Visit: Yes Status: Acute Code(s): K57.32 - DVTRCLI OF LG INT W/O PERFORATION OR ABSCESS W/O BLEEDING (2) Tobacco abuse Current Visit: Yes Status: Chronic Code(s): Z72.0 - TOBACCO USE (3) HTN (hypertension) Current Visit: Yes Status: Chronic Code(s): I10 - ESSENTIAL (PRIMARY) HYPERT ENSION (4) CAD (coronary artery disease) Current Visit: Yes Status: Chronic Code(s): I25.10 - ATHSCL HEART DISEASE OF [place] CORONARY ARTERY W/O ANG PCTRS (5) PAD (peripheral artery disease) Current Visit: Yes Status: Chronic Code(s): I73.9 - PERIPHERAL VASCULAR DISEASE, UNSPECIFIED (6) HLD (hyperlipidemia) Current Visit: Yes Status: Chronic Code(s): E78.5 - HYPERLIPIDEMIA, UNSPECIFIED (7) GERD (gastroesophageal reflux disease) Current Visit: Yes Status: Chronic Code(s): K21.9 - GASTRO-ESOPHAGEAL REFLUX DISEASE WITHOUT ESOPHAGITIS - Discharge Discharge Date: 07/17/24 Disposition: Home, Self-Care Condition: Stable Prescriptions: New Amox Tr/Potass Clav. 875 mg [Augmentin 875-125 Tablet] 875 mg PO BID 20 Days #10 tab Continue Rosuvastatin Calcium [Crestor] 10 mg PO HS Clopidogrel Bisulfate [PLAVIX Tablet] 75 mg PO HS Lisinopril 10 mg [Zestril 10 MG] 1 tab PO BID Isosorbide Mononitrate 30 mg [Imdur 30 MG] 1 tab PO DAILY Evolocumab [Repatha Syringe] 1 tab PO UD Famotidine [Pepcid] 40 mg PO DAILY PRN PRN Reason: acid reflux Hydrocodone/APAP 5/325 [[place] 5/325 mg] 1 each PO Q6H PRN PRN #10 tablet MDD 4 PRN Reason: Pain Cyclobenzaprine HCl 10 mg [Cyclobenzaprine 10 MG] 10 mg PO TID PRN PRN Reason: Muscle Spasms Ranolazine 500 MG [Ranexa 500 MG] 500 mg PO DAILY Propranolol HCl [Propranolol HCl ER] 80 mg PO HS Discontinued Metronidazole 500 mg [Flagyl 500 MG] 500 mg PO TID 7 Days #21 tablet Instructions: Diverticulitis
== END 2024-07-17 09:41 | disposition home or self-care (01) ==
LOC: ED 17:16 → MED SURG 20:47
PROVIDERS: ADMIT Internal Medicine; ATTEND Internal Medicine
DX: K57.32 Diverticulitis of large intestine without perforation or abscess without bleeding (principal); I10 Essential (primary) hypertension; I25.10 Atherosclerotic heart disease of native coronary artery without angina pectoris; I73.9 Peripheral vascular disease, unspecified; E78.5 Hyperlipidemia, unspecified; K21.9 Gastro-esophageal reflux disease without esophagitis; Z72.0 Tobacco use; Z79.01 Long term (current) use of anticoagulants; Z79.899 Other long term (current) drug therapy
CPT/HCPCS: 36415; 80048; 80053; 81001; 82150; 83605; 83690; 85025; 85027; 87040; 96374; 96375; 99283; 99285; G0378; J1171; J2405; Q3014; A9270-GY